=== PATIENT | female | born 1995 | race Caucasian/White ===

== ENCOUNTER → 2017-10-10 16:18 | Outpatient (CLI) | payer MEDICAID, SELFPAY ==
[2017-10-13 14:26] LABS: HPV Reflexed? NOT INDICATED
== END ==
PROVIDERS: Visit Provider Obstetrics & Gynecology
DX: Z12.4 Encounter for screening for malignant neoplasm of cervix (principal)
CPT/HCPCS: 88175; G0145

== ENCOUNTER 2018-03-30 23:35 | Emergency (ER) | payer MEDICAID, SELFPAY ==
[2018-03-30 23:36] VITALS: BP 112/77; PULSE 88; RESP 16; TEMP 37.2; O2SAT 98; BMI 25.8
--- NOTE | 2018-03-31 00:28 | ED.VISSUMM ---
- ER Visit Summary Date of Service: 03/31/18 Chief Complaint: sore throat History of Present Illness: The patient is a 22 F who presents with 2 days of sore throat. Patient developed sore throat 2 days ago, and now has associated headache, reductive cough, congestion and rhinorrhea, and nausea with 2 episodes of vomiting. Patient has not taken any [id number]-kuottow medications for her symptoms. She denies . Denies fever, neck pain, neck stiffness, abdominal pain, or other complaints other than above. Medical history of IBS. Physical Examination: Vital signs: afebrile, hemodynamically stable, no hypoxia on room air General: well nourished, well developed, in no distress Skin: warm, dry, no rash, no pallor HEENT: normocephalic and atraumatic; PERRL, EOMI, moist mucous membranes, mild posterior oropharyngeal erythema, no tonsillar swelling or exudates, no oropharyngeal lesions. Small cold sore to the corner of the right upper lip. Neck is supple, no lymphadenopathy, no tenderness. TMs are clear. Cardiovascular: regular rate and rhythm without murmurs, no peripheral edema, 2+ pulses all distal extremities Respiratory: No increased work of breathing, lungs are clear to auscultation bilaterally, no rales, rhonchi or wheezing Abdominal: Abdomen is soft, nontender with normoactive bowel sounds, no guarding or rebound, no masses MSK: Moves all extremities, no deformities, normal strength Neuro: Awake and alert, oriented ?4. No facial droop, sensation and motor function intact and symmetric Test Results: [] Emergency Department Course and Treatment: Patient's presentation is most consistent with a viral syndrome, and testing for strep is not indicated. Patient was given acetaminophen, Decadron and Zofran for symptomatically relief. She will continue to use [id number] medications for symptomatically for at home. She was given a prescription for Zofran for further nausea. She is to follow-up with her PCP if no improvement in 5 days. Patient discharged home. Treatment Plan: [] Disposition: [] Impression: Viral pharyngitis This note was generated with [employer] dictation software. It may contain incorrect words, spelling, and punctuation that were not noted in review of the chart prior to signing ED Disposition - Plan for ED Patient: Chief Complaint: Sore Throat Prescriptions: Ondansetron [Zofran Odt] 4 mg PO Q8H PRN PRN #10 tab PRN Reason: Nausea Referrals: Ana Maria Nicole MD [Primary Care Provider] -
--- NOTE | 2018-03-31 00:30 | ED.DEP ---
ED Disposition - Plan for ED Patient: Chief Complaint: Sore Throat Instructions: ED Pharyngitis Viral Prescriptions: Ondansetron [Zofran Odt] 4 mg PO Q8H PRN PRN #10 tab PRN Reason: Nausea Referrals: Ana Maria Nicole MD [Primary Care Provider] - 1 Week if not improving Additional Instructions: Use rqrh-icq-[id number] medications as needed for pain and discomfort. Follow-up with your doctor if you not having improvement in 5-7 days. If you have any worsening of your condition or any new concerning symptoms, please return immediately to the emergency department for another evaluation.
[2018-03-31] MEDS: Acetaminophen 500 MG Tablet 1000 MG PO (00:41)
[2018-03-31] MEDS: Ondansetron ODT 4 MG Tablet PO (00:42)
== END 2018-03-31 00:49 | disposition home or self-care (01) ==
PROVIDERS: Emergency Provider Emergency Medicine; Family Provider Internal Medicine; PCP Internal Medicine
DX: J02.9 Acute pharyngitis, unspecified (principal); J34.89 Other specified disorders of nose and nasal sinuses; R05 Cough; R11.2 Nausea with vomiting, unspecified; R51 Headache; K58.9 Irritable bowel syndrome, unspecified
CPT/HCPCS: 99283

== ENCOUNTER 2018-03-31 14:14 | Emergency (ER) | payer MEDICAID, SELFPAY ==
[2018-03-31 14:15] VITALS: BP 102/67; PULSE 109; RESP 16; TEMP 36.6; O2SAT 98; BMI 25.8
--- NOTE | 2018-03-31 15:57 | ED.VISSUMM ---
- ER Visit Summary Date of Service: 03/31/18 Chief Complaint: Chin laceration History of Present Illness: The patient is a 22 F presenting for evaluation secondary to a laceration to left liu. Patient reports that she was trying to mow outside and there was a tree in the way and she got angry that no one was cutting the tree down so she went inside and grabbed machete and was trying to trim the tree and ended up hitting herself in the left leg. Patient states that her tetanus status is up-to-date. Physical Examination: Lower extremity exam shows a 4-1/2 cm laceration over the patient's left anterior liu with full-thickness laceration, but no evidence of tendon or vascular involvement. Normal dorsiflexion plantar flexion and EHL of the foot, normal sensation normal pulses normal capillary refill distally. Test Results: None indicated Emergency Department Course and Treatment: Patient presented for evaluation secondary to a laceration. On initial exam of this there was a small amount of foreign material in there. Wound was anesthetized using a total of 10 cc 1% lidocaine. Patient's wound was then scrubbed with Shur-Clens and was copiously irrigated with saline. It was explored I was not able to identify any other foreign bodies, and there was no evidence of deep structure involvement. Wound was then dressed for closure. Patient was prepped and draped in sterile fashion. #3 5-0 Vicryl sutures were used to close the subcutaneous tissue, and #9 4-0 nylon sutures were used in a running fashion to close the skin. Patient tolerated this well. Wound was dressed she will follow-up with primary care for removal in 10-14 days. Disposition: Discharge Impression: 1. 4-1/2 cm left liu laceration 2. Complex laceration repair This note was generated with [employer] dictation software. It may contain incorrect words, spelling, and punctuation that were not noted in review of the chart prior to signing ED Disposition - Plan for ED Patient: Disposition: Home or Assisted Living Chief Complaint: Laceration Diagnosis: Skin laceration Instructions: ED Laceration All Referrals: Ana Maria Nicole MD [Primary Care Provider] - 10-14 Days suture removal
[2018-03-31] MEDS: BACITRACIN 15 GM Tube 1 APPLIC TOPICAL (16:08)
[2018-03-31 16:10] VITALS: PULSE 88; RESP 16
== END 2018-03-31 16:10 | disposition home or self-care (01) ==
PROVIDERS: Emergency Provider Emergency Medicine; Family Provider Internal Medicine; PCP Internal Medicine
DX: S81.822A Laceration with foreign body, left lower leg, initial encounter (principal); W26.8XXA Contact with other sharp object(s), not elsewhere classified, initial encounter; Y93.9 Activity, unspecified; Y92.9 Unspecified place or not applicable; K58.9 Irritable bowel syndrome, unspecified
CPT/HCPCS: 12032; 99283

== ENCOUNTER → 2018-04-30 15:12 | Outpatient (CLI) | payer MEDICAID, SELFPAY ==
--- NOTE | 2018-04-30 15:18 | RAD_ITS ---
STUDY: X-RAY - LUMBAR SPINE REASON FOR EXAM: Female, 22 years old. Chronic low back pain TECHNIQUE: 5 view(s) of the lumbar spine were obtained. COMPARISON: None FINDINGS: Normal lumbar lordosis. There is no substantial scoliosis. There is a normal alignment of the vertebrae. Normal vertebral bodies and endplates. Normal disc space heights. The soft tissue structures are unremarkable. RAD/L/S Spine Min 4 Views IMPRESSION: Normal x-ray examination of the lumbar spine. Electronically Signed: Michael Poe DO at 11:43 EDT Tel , Service support ,
== END ==
PROVIDERS: Family Provider Internal Medicine; PCP Internal Medicine; Visit Provider Chiropractor
DX: S33.5XXA Sprain of ligaments of lumbar spine, initial encounter (principal)
CPT/HCPCS: 72110

== ENCOUNTER → 2018-10-24 10:33 | Outpatient (CLI) | payer MEDICAID, SELFPAY ==
[2018-10-24 16:10] LABS: Pregnancy, Serum, hCG Quali. NEGATIVE Negative (0-9 Nonpreg)
[2018-10-26 13:08] LABS: HPV Reflexed? NOT INDICATED
== END ==
PROVIDERS: Visit Provider Obstetrics & Gynecology
DX: Z12.4 Encounter for screening for malignant neoplasm of cervix (principal); N92.5 Other specified irregular menstruation
CPT/HCPCS: 36415; 84703; 88175; G0145

== ENCOUNTER 2018-11-02 14:30 | Outpatient (RCR) | payer MEDICAID, SELFPAY ==
--- NOTE | 2018-10-10 12:12 | HP.OTEVAL_ITS ---
Patient's Visit Information NATASHA WILLAMS is a 23 year old F, referred to Occupational Therapy by Peter Ndiaye MD, with a diagnosis of pain and swelling both hands. Date of Evaluation: 10/09/18 Occupational Therapist: Di Galloway - Subjective Subjective: Pt seen for initial occupational thearpy evaluation for pain and swelling bilateral wrists. Pt states pain started about a year to year and half ago. Right hand dominent. Pt states cortisone in R hand 08/27/18 made things worse no relief. Scrubbing, writing, coloring/drawing cause most pain. Started when carrying 30 packs of beer with her job at the time. 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 Pt states increased pain with her job in bilateral hands. States her fiance has to pop and pull her R thumb out on days she has a lot of pain. Indep with BADLs/IADLs and caring for 16 month old baby. 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 Lives w torsten and her child. - Pain R wrist 5 - Objective Objective/Observation: pain with movement of bilateral wrists - ROM Wrist: R flexion 0/96, extension 0/65, L flexion 0/95 extension 0/68 ROM Comments: Pt able to make composite fist bilateral hands - Strength Blacking Machine Operator: R 80# L 53# Lateral Pinch: R 5#, L 8# Tripod Pinch: R 10#, L 5# - Edema Other: slight edema bilateral digits, pt states difficult to get her rings off - Sensation Sensation Comments: L hand numbness all digits and palm. Monofilament test: L hand/digits 2.83 normal range - Quick DASH-Disab of Arm,Shoulder& Hand Quick DASH Score: 56.8175 - Goals Goal:: Pt will progress w/ L tripod pinch strength from 5# to 10# to assist with functional living tasks by d/c from OT. Pt will progress w/ L retail client solutions consultant strength by 20# to assist with BADLs tasks w/o difficulty by d/c from OT services. Goal:: Pt will demo no pain greater than 1/10 bilateral hands/wrists with movement by d/c from OT services. Goal:: Pt will be educated on joint protection/energy conservation tech w/ good understanding and demo 100%x. Goal:: Pt will be able to open variety of containers independently using bilateral hands in 3/4 trials by d/c from OT services. Goal:: Pt will be educated on BUE HEP with good understanding and demo 100%x. - Rehabilitation General Assessment: Pt demo increased bilateral hand and wrist pain with repetitive tasks. Pt demo decreased bilateral hand strength. Pt would benefit from direct occupational therapy services to increase bilateral hand strength, educate on BUE hand HEP, decrease pain bilateral hands/wrists to increase indep with functional living tasks and repetitive tasks. Rehabilitation Potential: Good - Anticipated Interventions Anticipated Interventions: Strengthening, Massage, Modalities, Orthoses, Joint Protection/Energy Conservation, Fine Motor Coord/Manuel, ADL Training, Education re assistive Equipment, Education re Diagnosis, Education re Self Massage Techniques, Home Program - Visit Plan Frequency: 1-2x /Week Duration: 4 Weeks General Plan: increase retail client solutions consultant and pinch strength, educate on HEP, increase independence with functional living tasks, educate on joint protection, decrease bilateral hand pain. TEXT: Thank you for the opportunity to evaluate your patient. For Medicare and Medicare HMO plans, please review the plan of care and approve it. It will need to be FAXED BACK to us at [phone] for Medicare purposes. Please let me know if there are questions or concerns regarding this plan of care. Physician Signature: Date:
== END 2018-11-02 17:00 | disposition home or self-care (01) ==
LOC: OT 14:30
PROVIDERS: Family Provider Internal Medicine; PCP Internal Medicine; Referring Provider Orthopaedic Surgery; Visit Provider Orthopaedic Surgery
DX: M79.641 Pain in right hand (principal); M79.642 Pain in left hand; M79.89 Other specified soft tissue disorders
CPT/HCPCS: 97035; 97140; 97165; 97166; 97530

== ENCOUNTER 2019-04-04 19:38 | Emergency (ER) | payer MEDICAID, SELFPAY ==
[2019-04-04 19:39] VITALS: BP 125/70; PULSE 106; RESP 18; TEMP 37.2; O2SAT 96; BMI 28.0
--- NOTE | 2019-04-04 19:56 | ED.VIS.GEN ---
History of Present Illness Chief Complaint: Foreign Body Detail of Chief Complaint: Swallowed tongue piercing Informant: Patient Onset: Today Context: Sudden Onset Timing: Continuous Quality: Foreign body sensation right anterior neck Location: Anterior neck Current Severity: Mild Maximum Severity: Moderate Worsened by: Swallowing Relieved by: Nothing Associated Symptoms: No other associated symptoms Narrative: Patient is a 23-year-old who states she choked a bottle of Mountain Dew. She states her piercing came apart and she swallowed it. She believes it is stuck anterior right throat. She has no trouble swallowing i.e. drooling and no change in voice. She states she feels as if it stuck. Prior similar symptoms: No Recent Illness/Hospitalization: No - Past Medical History (1) No significant past medical history Status: Acute Past Medical History - Allergies and Home Meds Allergies/Adverse Reactions: Allergies nickel Allergy (Verified 04/04/19 19:42) Rash aspirin Adverse Reaction (Verified 04/04/19 19:42) Upset Stomach Primary Care Physician: Ana Maria Nicole MD [Primary Care Provider] - Prior records reviewed: No Past Medical History: None Surgical History: no surgical history Lives: Alone Smoking Status: Current every day smoker Alcohol: None Drugs: None Review of Systems General: Denies: Chills, Fever, Sweats Eyes: Denies: Visual changes - bilaterally, Blurred Vision - bilaterally ENT: Denies: Bilateral ear pain, Rhinorrhea, Sore throat Cardiovascular: Denies: Chest pain, Palpitations Respiratory: Denies: Dyspnea, Cough, Dyspnea on exertion Musculoskeletal: Reports: Neck pain. Denies: Myalgias, Arthralgias Neurological: Denies: Weakness, Parasthesia, Numbness Hematologic: Denies: Easy bruising, Easy bleeding Allergy: Denies: Uticaria, Swelling of the mouth, Swelling of the tongue Physical Exam Vital Signs/Narrative: Vital Signs Temp Pulse Resp BP Pulse Ox 04/04/19 19:39 98.9 F 106 H 18 125/70 H 96 Inital Vital Signs reviewed: Yes General: Well nourished, Well developed, No Acute Distress Head: Normocephalic, Atraumatic Eyes: Perrl, EOMI ENT: Moist mucous membranes, No rhinorrhea Neck: Supple, Nontender, No lymphadenopathy, No JVD, - - Trachea is midline. There is no stridor. There is no dysphonia. There is no drooling. Cardiovascular: Regular rate, Regular rhythm, No murmurs, Normal S1, Normal S2 Respiratory: No distress, CTA bilaterally, Chest nontender Skin: Normal color, No rash Neurological: Alert, Oriented x3, Cranial nerves II-XII grossly intact, Normal Strength, Normal Sensation Psychological: Normal affect, Normal Mood Diagnostic/Tx/Re-eval Chest X-Ray - ED: 2 View, Read by ED Physician, - - 2 view x-ray of the neck reveals no foreign body. There is evidence of dental work. The cervical spine alignment is appropriate. There is no soft tissue swelling of the prevertebral space. The epiglottis and vallecula appear normal. - Medical Decision Making Tissue x-ray of the neck was obtained to see if there is a retained foreign body versus an abrasion which gives the sensation of a foreign body. ED Disposition - Plan for ED Patient: Disposition: Home or Assisted Living Diagnosis: Foreign body sensation in throat Instructions: SWALLOWED FOREIGN BODY (Adult) Referrals: Ana Maria Nicole MD [Primary Care Provider] - As Needed
--- NOTE | 2019-04-04 20:20 | RAD_ITS ---
STUDY: X-RAY - SOFT TISSUE NECK REASON FOR EXAM: Female, 23 years old. Swallowed part of a tongue ring TECHNIQUE: 2 view(s) of the neck were obtained. COMPARISON: None. FINDINGS: Normal visualized nasopharynx, oropharynx, hypopharynx. Normal epiglottis. Normal visualized subglottic tracheal air column. Normal prevertebral soft tissue structures. Normal visualized osseous structures. The soft tissue structures are unremarkable. RAD/Neck for Soft Tissue IMPRESSION: Normal x-ray soft tissue neck. Electronically Signed: Michael Poe DO at 20:42 EDT Tel , Service support ,
[2019-04-04 21:52] VITALS: RESP 17
[2019-04-04 21:55] VITALS: BP 132/76; PULSE 75; RESP 15
== END 2019-04-04 21:56 | disposition home or self-care (01) ==
PROVIDERS: Emergency Provider Emergency Medicine; Family Provider Internal Medicine; PCP Internal Medicine
DX: R09.89 Other specified symptoms and signs involving the circulatory and respiratory systems (principal); F17.200 Nicotine dependence, unspecified, uncomplicated
CPT/HCPCS: 70360; 99282

== ENCOUNTER 2019-08-10 19:35 | Emergency (ER) | payer MEDICAID, SELFPAY ==
[2019-08-10 19:35] VITALS: BP 122/67; PULSE 100; RESP 16; TEMP 37.1; O2SAT 97; BMI 25.9
--- NOTE | 2019-08-10 19:56 | ED.VIS.GEN ---
History of Present Illness Chief Complaint: Abd Pain Informant: Patient Onset: Yesterday Timing: Waxes and wanes Current Severity: Mild Maximum Severity: Moderate Narrative: Patient presents with pain to the inferior aspect of the left lower quadrant. She states she had some mild pulling sensation yesterday. Today she has had more severe spasm. She is currently 7 weeks and has not yet had imaging studies. She states her last period was late June but was not a normal period for her, it was much raise driller and shorter than normal. She is scheduled to see Dr. Hull this coming week. - Past Medical History (1) Anxiety and depression Status: Chronic (2) Back pain Status: Chronic Past Medical History - Allergies and Home Meds Allergies/Adverse Reactions: Allergies nickel Allergy (Verified 04/04/19 19:42) Rash aspirin Adverse Reaction (Verified 04/04/19 19:42) Upset Stomach Primary Care Physician: Ana Maria Nicole MD [Primary Care Provider] - Doctors: Dr. Hull Surgical History: no surgical history Lives: With Family Smoking Status: Current every day smoker Review of Systems General: Denies: Chills, Fever Eyes: Denies: Visual changes - bilaterally ENT: Denies: Bilateral ear pain Cardiovascular: Denies: Chest pain Respiratory: Denies: Dyspnea, Cough Gastrointestinal: Reports: Abdominal pain, Nausea, Vomiting Genitourinary: Denies: Dysuria, Hematuria Musculoskeletal: Denies: Extremity Pain Skin: Denies: Rash Neurological: Denies: Headache Allergy: Denies: Uticaria Physical Exam Vital Signs/Narrative: Vital Signs Temp Pulse Resp BP Pulse Ox 08/10/19 19:35 98.7 F 100 16 122/67 H 97 Inital Vital Signs reviewed: Yes General: Well nourished, Well developed Head: Normocephalic ENT: Moist mucous membranes Neck: Supple Cardiovascular: Regular rate, Regular rhythm Respiratory: No distress, CTA bilaterally Abdomen: Soft, Tender - Mild tenderness palpation in the inferior aspect of the left lower quadrant.. Negative for: Guarding, Rebound tenderness Back: Nontender Extremities: Nontender Skin: Normal color, No rash Neurological: Alert, Oriented x3 Psychological: Normal affect Diagnostic/Tx/Re-eval 08/10/19 20:51 Transvaginal w/Preg US [US] Stat Laboratory Results 01/04/20 01/04/20 01/04/20 19:47 19:53 19:53 WBC 8.3 RBC 4.59 Hgb 13.6 Hct 39.6 MCV 86.3 MCH 29.6 MCHC 34.3 RDW Std Deviation 40.1 RDW Coeff of Radha 12.9 Plt Count 211 MPV 11.8 Immature Gran % (Auto) 0.400 Neut % (Auto) 71.6 H Lymph % (Auto) 23.1 [place] % (Auto) 4.7 Eos % (Auto) 0.1 Baso % (Auto) 0.1 Absolute Neuts (auto) 6.0 Absolute Lymphs (auto) 1.92 Nucleated RBC % 0 HCG, Quant [id number] H Urine Color Yellow Urine Clarity Clear Urine pH 5.0 Ur Specific [place] 1.025 Urine Protein 15 H Urine Glucose (UA) Normal Urine Ketones 5 H Urine Occult Blood 10 H Urine Nitrite Negative Urine Bilirubin Negative Urine Urobilinogen Normal Ur Leukocyte Esterase 25 H Urine RBC 0 SEEN Urine WBC 0-5 SEEN Ur Squamous Epith Cells 10-25 SEEN Urine Bacteria 2+ Urine Mucus 0 SEEN - Medical Decision Making Patient was given morphine, Zofran, and IV fluids. Repeat evaluation she does feel improved. Ultrasound appears to show intrauterine at 7 weeks with good heart tone. Official report will be checked by oncoming physician. Patient has follow-up appointment scheduled this week with ONCOLOGY COORDINATOR. ED Disposition - Plan for ED Patient: Disposition: Home or Assisted Living Diagnosis: Pelvic pain, First trimester Instructions: ABDOMINAL PAIN, Early Referrals: Nilo Hull MD [STAFF PHYSICIAN] - Keep Colin appointment
[2019-08-10 20:02] LABS: Mucous, Urine 0 SEEN /hpf (<or=2+); Red Blood Cells-Urine 0 SEEN /hpf (0-5)
[2019-08-10] MEDS: 0.9% Normal Saline 1,000 ML 150 ML IV (20:02)
[2019-08-10] MEDS: Ondansetron 4 MG/2 ML Vial IV (20:03)
[2019-08-10] MEDS: Morphine 4 MG/ML Syringe IV (20:03)
[2019-08-10 20:08] LABS: Color, Urine Yellow (Yellow); Glucose, Dipstick Normal (Normal); Ketone-Dipstick 5 mg/dl (Negative); Leukocyte Esterase-Dipstick 25 /ul (Negative); Nitrite-Dipstick Negative (Negative); Occult Blood-Urine 10 /ul (Negative); Protein-Dipstick 15 mg/dl (Negative); Specific Gravity, Urine 1.025 (1.002-1.030); Urine Bilirubin Dipstick Negative (Negative); Urine Clarity Clear (Clear); Urine Urobilinogen Normal (Normal)
[2019-08-10 20:16] LABS: Squamous Epithelial Cells - UA 10-25 SEEN /hpf (5-10); White Blood Cells 0-5 SEEN /hpf (0-5)
[2019-08-10 20:17] LABS: Absolute Lymphocyte Count 1.92 X10^3/uL (0.83-4.51); Basophil# 0.01 X10^3/uL; Basophil% 0.1 % (0-1); Eosinophil# 0.01 X10^3/uL; Eosinophils% 0.1 % (0-5); Hematocrit 39.6 % (37-47); Hemoglobin 13.6 g/dL (12.0-15.0); Lymphocyte # 1.92 X10^3/ul (4.0); Lymphocyte % 23.1 % (19-41); Mean Corp Hgb Conc 34.3 g/dL (32-36); Mean Corpuscular Hgb 29.6 pg (27.0-32.0); Mean Corpuscular Volume 86.3 fL (81-99); Mean Platelet Vol. 11.8 fl (6.2-12.0); Monocyte# 0.39 X10^3/uL; Monocyte% 4.7 % (0-10); NRBC Flagged by Analyzer 0 % (0-5); Neutrophil # 5.95 X10^3/uL (2.7-7.7); Neutrophil % 71.6 % (47-70); Platelet Count 211 K/mm3 (150-450); RBC Distribution Width CV 12.9 % (11.6-14.6); RBC Distribution Width SD 40.1 fl (35.1-43.9); Red Blood Count 4.59 M/mm3 (4.2-5.4); White Blood Count 8.3 K/mm3 (4.4-11.0)
[2019-08-10 20:17] LABS: Bacteria 2+ /hpf (None Seen)
--- NOTE | 2019-08-10 20:51 | US_ITS ---
STUDY: FIRST TRIMESTER OBSTETRICAL ULTRASOUND REASON FOR EXAM: Female, 24 years old PAIN - LLQ QUANT [id number] LMP: 06/26/2019 TECHNIQUE: Transvaginal TECHNICAL QUALITY: Adequate. PRIOR ULTRASOUND: None. FINDINGS: There is visualization of a single gestational sac in a normal intrauterine position. The mean sac diameter (MSD) measures 2.73 cm, indicating an estimated gestational age (EGA) of 8 weeks, 0 days. The gestational sac shape is within normal limits. There is a visualized yolk sac. The yolk sac measures 0.54 cm. The placenta is non-visualized. There is visualization of a live embryo. The crown-rump length (CRL) measures 0.99 cm, indicating an estimated gestational age (EGA) of 7 weeks, 1 days. There is demonstrated cardiac activity with a heart rate of 124 bpm. The estimated gestation age (EGA) by LMP is 6 weeks, 3 days. The estimated date of delivery (LANIE) by LMP is 04/01/2020. The estimated gestation age (EGA) by US is 7 weeks, 4 days. The estimated date of delivery (LANIE) by US is 03/24/2020. The uterus measures 8.7 x 7.0 x 5.4 cm. There is no demonstrated uterine fibroid. The cervix is closed. The right ovary measures 2.6 x 2.2 x 2.4 cm. There is no right ovarian cyst. There is no visualized right adnexal mass or complex lesion. The left ovary measures 3.0 x 1.7 x 3.9 cm. There is no left ovarian cyst. There is no visualized left adnexal mass or complex lesion. There is no fluid in the cul de sac. US/Transvaginal w/Preg US IMPRESSION: Single live intrauterine at 7 weeks, 4 days by current ultrasound LANIE of 03/24/2020. Heart rate of 124 bpm. No suspicious sonographic findings Electronically Signed: Colby Robertson MD at 22:50 EST , Service support ,
[2019-08-10 21:54] VITALS: RESP 16
[2019-08-10 23:11] VITALS: BP 96/55; PULSE 60; RESP 18; O2SAT 100
== END 2019-08-10 23:11 | disposition home or self-care (01) ==
PROVIDERS: Emergency Provider Emergency Medicine; Family Provider Internal Medicine; PCP Internal Medicine
DX: O26.891 Other specified pregnancy related conditions, first trimester (principal); R10.2 Pelvic and perineal pain; R11.2 Nausea with vomiting, unspecified; O99.331 Smoking (tobacco) complicating pregnancy, first trimester; F17.200 Nicotine dependence, unspecified, uncomplicated; Z3A.01 Less than 8 weeks gestation of pregnancy
CPT/HCPCS: 76817; 81001; 84702; 85025; 96361; 96374; 96375; 99282; J7030; A4216; J2405

== ENCOUNTER → 2019-08-14 16:48 | Outpatient (CLI) | payer MEDICAID, SELFPAY ==
[2019-08-10 19:35] VITALS: BMI 25.9
[2019-08-14 22:30] LABS: Chlamydia Trachomatis by PCR Negative (Negative); Neisserai gonorrhoeae by PCR Negative (Negative); Probe Check PASS; Sample Adequacy Control PASS; Specimen Processing Control PASS
== END ==
PROVIDERS: Visit Provider Obstetrics & Gynecology
DX: Z11.3 Encounter for screening for infections with a predominantly sexual mode of transmission (principal)
CPT/HCPCS: 87491; 87591

== ENCOUNTER → 2019-09-11 15:25 | Outpatient (CLI) | payer MEDICAID, SELFPAY ==
[2019-09-11 16:23] LABS: Absolute Lymphocyte Count 1.92 X10^3/uL (0.83-4.51); Absolute Neutrophil Count 4.3 X10^3/uL (2.0-7.7); Basophil# 0.01 X10^3/uL; Basophil% 0.2 % (0-1); Eosinophil# 0.04 X10^3/uL; Eosinophils% 0.6 % (0-5); Hematocrit 39.8 % (37-47); Hemoglobin 13.5 g/dL (12.0-15.0); Lymphocyte # 1.92 X10^3/ul (4.0); Lymphocyte % 29.1 % (19-41); Mean Corp Hgb Conc 33.9 g/dL (32-36); Mean Corpuscular Hgb 29.5 pg (27.0-32.0); Mean Corpuscular Volume 86.9 fL (81-99); Mean Platelet Vol. 12.2 fl (6.2-12.0); Monocyte# 0.35 X10^3/uL; Monocyte% 5.3 % (0-10); NRBC Flagged by Analyzer 0 % (0-5); Neutrophil # 4.26 X10^3/uL (2.7-7.7); Neutrophil % 64.5 % (47-70); Platelet Count 234 K/mm3 (150-450); RBC Distribution Width CV 13.2 % (11.6-14.6); RBC Distribution Width SD 41.6 fl (35.1-43.9); Red Blood Count 4.58 M/mm3 (4.2-5.4); White Blood Count 6.6 K/mm3 (4.4-11.0)
[2019-09-11 16:59] LABS: Amphetamine Urine VISTA NEGATIVE (<1000 ng/mL); Barbiturate Urine VISTA NEGATIVE (< 200 ng/mL); Benzodiazepine Urine VISTA NEGATIVE (< 200 ng/mL); Cocaine Urine VISTA NEGATIVE (< 300 ng/mL); Ecstacy Urine VISTA NEGATIVE (< 500 ng/mL); Methadone Urine VISTA NEGATIVE (< 300 ng/mL); PCP Urine VISTA NEGATIVE (< 25 ng/mL); THC Urine VISTA NEGATIVE (< 50 ng/mL); Vista UDS pH Range 6
[2019-09-11 17:02] LABS: COTININE Drug Screen Positive (<200 ng/mL)
[2019-09-11 17:15] LABS: Color, Urine Yellow (Yellow); Glucose, Dipstick Normal (Normal); Ketone-Dipstick Negative (Negative); Leukocyte Esterase-Dipstick Negative /ul (Negative); Nitrite-Dipstick Negative (Negative); Occult Blood-Urine Negative /ul (Negative); Protein-Dipstick 15 mg/dl (Negative); Specific Gravity, Urine 1.015 (1.002-1.030); Urine Bilirubin Dipstick Negative (Negative); Urine Clarity Clear (Clear); Urine Urobilinogen 1 mg/dl (Normal)
[2019-09-12 03:50] LABS: Prenatal RPR NONREACTIVE (NONREACTIVE)
[2019-09-12 09:41] LABS: HIV - WCH Non-Reactive (Nonreactive); Hepatitis B Surface Antigen Non-Reactive (Nonreactive); Hepatitis C Antibody Non-Reactive (Nonreactive); Rubella IgG 52.8 IU/mL
== END ==
PROVIDERS: Visit Provider Obstetrics & Gynecology
DX: Z34.81 Encounter for supervision of other normal pregnancy, first trimester (principal)
CPT/HCPCS: 36415; 80307; 81002; 84443; 85025; 86703; 86762; 86803; 87340

== ENCOUNTER → 2019-10-09 16:39 | Outpatient (CLI) | payer MEDICAID, SELFPAY ==
[2019-10-12 03:06] LABS: AFP Value-EIA 30.4 ng/mL (.); Comment Report (.); DIA MoM Value 0.72 (.); DIA Value-EIA 109.76 pg/mL (.); DSR (By Age) 948 (.); DSR (Second Trimester) 10000 (.); Gestat. Age Based On As provided (.); Gestational Age 16.1 WEEKS (.); Insulin Dep Diabetes No (.); Maternal Age At EDD 26.6 yr (.); hCG MoM 0.34 (.); hCG Value 12490 mIU/mL (.)
== END ==
PROVIDERS: Visit Provider Obstetrics & Gynecology
DX: Z34.82 Encounter for supervision of other normal pregnancy, second trimester (principal)
CPT/HCPCS: 36415; 82105; 82677; 84702

== ENCOUNTER → 2020-01-02 15:36 | Outpatient (CLI) | payer MEDICAID, SELFPAY ==
[2020-01-02 16:36] LABS: Hematocrit 35.2 % (37-47); Hemoglobin 11.8 g/dL (12.0-15.0); Mean Corp Hgb Conc 33.5 g/dL (32-36); Mean Corpuscular Hgb 31.1 pg (27.0-32.0); Mean Corpuscular Volume 92.6 fL (81-99); Mean Platelet Vol. 12.3 fl (6.2-12.0); Platelet Count 226 K/mm3 (150-450); RBC Distribution Width CV 13.8 % (11.6-14.6); RBC Distribution Width SD 46.8 fl (35.1-43.9); White Blood Count 9.6 K/mm3 (4.4-11.0)
[2020-01-02 16:45] LABS: Glucose Challenge Gest 1H 50g 143 mg/dL (70-140)
== END ==
PROVIDERS: Visit Provider Obstetrics & Gynecology
DX: Z34.83 Encounter for supervision of other normal pregnancy, third trimester (principal)
CPT/HCPCS: 36415; 82950; 85027

== ENCOUNTER → 2020-01-15 06:53 | Outpatient (CLI) | payer MEDICAID, SELFPAY ==
[2020-01-15 07:28] LABS: Glucose GTT-Gestation. Fasting 86 mg/dL (<105)
[2020-01-15 08:41] LABS: Glucose GTT-Gestational 1 Hr 163 mg/dL (<190)
[2020-01-15 09:31] LABS: Glucose GTT-Gestational 2 Hr 98 mg/dL (<165)
[2020-01-15 10:43] LABS: Glucose GTT-Gestational 3 Hr 127 L (<145)
== END ==
PROVIDERS: PCP Nurse Practitioner Family; Referring Provider Obstetrics & Gynecology; Visit Provider Obstetrics & Gynecology
DX: O24.912 Unspecified diabetes mellitus in pregnancy, second trimester (principal); Z3A.00 Weeks of gestation of pregnancy not specified
CPT/HCPCS: 36415; 82951; 82952

== ENCOUNTER 2020-02-05 01:15 | Outpatient (CLI) | payer MEDICAID, SELFPAY ==
[2020-02-05 01:31] VITALS: PULSE 102; O2SAT 96
[2020-02-05 01:32] VITALS: BP 120/71; PULSE 102; TEMP 36.6
[2020-02-05 01:40] VITALS: BMI 28.5
--- NOTE | 2020-02-06 20:23 | OB.TRI.HP_ITS ---
- Problem List (1) 33 weeks gestation of Status: Acute (2) Spotting complicating in third trimester Status: Acute History of Present Illness Date of Service: 02/05/20 Was patient seen by the physician?: No Reason For Visit: R/O LABOR Date of Service: 02/05/20 Final LANIE: 03/24/20 Final LANIE Source: US <20 weeks Gestational age: 33 Weeks and 2 Days History of Present Illness: Patient came into triage with reports of having a little blood on the toilet paper when she wiped today. Allergies nickel Allergy (Verified 02/05/20 01:41) Rash aspirin Adverse Reaction (Verified 02/05/20 01:41) Upset Stomach Review of Systems Constitutional: Denies: Chills, Fever, Weight Change HEENT: Denies: Head Aches, Sinus Congestion, Sinus Drainage Cardiovascular: Denies: Chest Pain, Palpitations Respiratory: Denies: Cough, Shortness of breath at rest, Sputum production Gastrointestinal: Denies: Abdominal Pain, Nausea, Vomiting Genitourinary: Denies: Dysuria Musculoskeletal: Denies: Joint Pain, Joint Tenderness Skin: Denies: Rash, Wounds Neurological: Denies: Numbness, Tingling, Focal weakness Psychiatric: Denies: Anxiety, Depression, Homicidal Ideations, Suicidal Ideations Hematologic/ Lymphatic: Denies: Easy Bruising, Easy Bleeding Physical Exam Vitals: Vital Signs Temp Pulse BP Pulse Ox 97.8 F 102 H 120/71 96 02/05/20 01:32 02/05/20 01:32 02/05/20 01:32 02/05/20 01:31 General: Alert, Oriented x3, No apparent distress HEENT: Atraumatic, Normocephalic. Negative for: Thyromegaly, Lymphadenopathy Cardiovascular: Regular rate, Regular Rhythm Lungs: Clear to auscultation Abdomen: Bowel Sounds Present, Gravid Neurological: Deep Tendon Reflexes 2+/4 and Symmetrical, Neuro grossly intact COMMISSIONER OF CONCILIATION: Normal external genitalia. Negative for: Vulvar lesions Estimated gestational size: Appropriate for gestational size NST - FHR Rate Baby A Baseline: 135 Variability:: Moderate Accelerations:: 15 x 15 Decelerations:: None NST Reactive:: Yes FHR Category:: Category I Uterine Activity:: quiet Impression/Plan A/P: A/P: here at 33 weeks gestation with complaints of spotting x once NST Category I No UC noted or reported No vaginal bleeding or rectal bleeding visualized Patient believes now that the blood was from her rectum after using the bathroom To discharge home to rest, hydrate and monitor symptoms To return to triage or call union contract representative triage line if bleeding reoccurs
== END 2020-02-05 02:00 | disposition home or self-care (01) ==
LOC: WPOUT 01:20 → WP 01:20
PROVIDERS: PCP Nurse Practitioner Family; Visit Provider Obstetrics & Gynecology
DX: O26.853 Spotting complicating pregnancy, third trimester (principal); Z3A.33 33 weeks gestation of pregnancy
CPT/HCPCS: 59025; 59050; 99218; G0378

== ENCOUNTER → 2020-02-26 17:59 | Outpatient (CLI) | payer MEDICAID, SELFPAY ==
[2020-02-05 01:40] VITALS: BMI 28.5
== END ==
PROVIDERS: Referring Provider Obstetrics & Gynecology; Visit Provider Obstetrics & Gynecology
DX: Z36.85 Encounter for antenatal screening for Streptococcus B (principal)
CPT/HCPCS: 87081

== ENCOUNTER 2020-03-15 16:50 | Outpatient (CLI) | payer MEDICAID, SELFPAY ==
[2020-03-15 17:08] VITALS: BMI 28.0
--- NOTE | 2020-03-15 23:55 | OB.TRI.NOTE ---
- Problem List (1) 38 weeks gestation of Status: Acute History of Present Illness Date of Service: 03/15/20 Was patient seen by the physician?: No Reason For Visit: DECREASED MOVEMENT Final LANIE: 03/24/20 Final LANIE Source: US <20 weeks Gestational age: 38 Weeks and 5 Days History of Present Illness: at 38 5/7 weeks gestation with c/o decreased movement Allergies nickel Allergy (Verified 03/17/20 23:53) Rash aspirin Adverse Reaction (Verified 03/17/20 23:53) Upset Stomach lactose Adverse Reaction (Verified 03/17/20 23:53) Upset Stomach NST - FHR Rate Baby A Baseline: 130 Variability:: Moderate Accelerations:: 15 x 15 Decelerations:: None NST Reactive:: Yes FHR Category:: Category I Uterine Activity:: 0/10 Impression/Plan Reactive NST, Cat I FHR -d/c home
== END 2020-03-15 18:15 | disposition home or self-care (01) ==
LOC: WPOUT 16:57 → OBT 16:57
PROVIDERS: Visit Provider Obstetrics & Gynecology
DX: O36.8130 Decreased fetal movements, third trimester, not applicable or unspecified (principal); Z3A.38 38 weeks gestation of pregnancy
CPT/HCPCS: 59025; 59050; 99218; G0378

== ENCOUNTER 2020-03-17 23:33 | Outpatient (CLI) | payer MEDICAID, SELFPAY ==
[2020-03-17 23:43] VITALS: BP 111/65; PULSE 96; TEMP 36.7; O2SAT 97
[2020-03-17 23:51] VITALS: BMI 28.3
--- NOTE | 2020-03-17 23:55 | OB.TRI.NOTE ---
- Problem List (1) 39 weeks gestation of Status: Acute (2) Decreased movement Status: Acute Qualifiers: Fetus number: single or unspecified fetus Trimester: third trimester Qualified Code(s): O36.8130 - Decreased movements, third trimester, not applicable or unspecified History of Present Illness Date of Service: 03/17/20 Was patient seen by the physician?: No Reason For Visit: DECREASED MOVEMENT Final LANIE: 03/24/20 Final LANIE Source: US <20 weeks Gestational age: 39 Weeks and 0 Days History of Present Illness: 24yo @ 39 wga with c/o decreased movement Allergies nickel Allergy (Verified 03/17/20 23:53) Rash aspirin Adverse Reaction (Verified 03/17/20 23:53) Upset Stomach lactose Adverse Reaction (Verified 03/17/20 23:53) Upset Stomach Physical Exam Vitals: Vital Signs Temp Pulse BP Pulse Ox 98.1 F 80 110/58 L 98 03/18/20 00:29 03/18/20 00:29 03/18/20 00:29 03/18/20 00:29 NST - FHR Rate Baby A Baseline: 130 Variability:: Moderate Accelerations:: 15 x 15 Decelerations:: None NST Reactive:: Yes FHR Category:: Category I Uterine Activity:: 0/10 Impression/Plan Cat I FHR, Reactive NST -d/c home, movement precautions, f/u outpatient as scheduled
[2020-03-18 00:29] VITALS: BP 110/58; PULSE 80; TEMP 36.7; O2SAT 98
== END 2020-03-18 00:40 | disposition home or self-care (01) ==
LOC: WPOUT 23:42 → OBT 23:43
PROVIDERS: Visit Provider Obstetrics & Gynecology
DX: O36.8130 Decreased fetal movements, third trimester, not applicable or unspecified (principal); Z3A.39 39 weeks gestation of pregnancy
CPT/HCPCS: 59025; 59050; 99218; G0378

== ENCOUNTER 2020-03-25 11:25 | Inpatient (IN) | payer MEDICAID, SELFPAY ==
[2020-03-25] VITALS (34 sets, daily range): BP systolic 98–116; BP diastolic 55–68; PULSE 58–95; TEMP 36.1–36.9; O2SAT 83–99; BMI 28.6
[2020-03-25] MEDS: Lactated Ringers 1,000 ML 50 ML IV (15:55)
[2020-03-25 16:13] LABS: Absolute Neutrophil Count 7.6 X10^3/uL (2.0-7.7); Basophil# 0.03 X10^3/uL; Basophil% 0.3 % (0-1); Eosinophil# 0.05 X10^3/uL; Eosinophils% 0.5 % (0-5); Hematocrit 34.1 % (37-47); Hemoglobin 11.8 g/dL (12.0-15.0); Lymphocyte % 22.9 % (19-41); Mean Corp Hgb Conc 34.6 g/dL (32-36); Mean Corpuscular Volume 89.5 fL (81-99); Mean Platelet Vol. 12.5 fl (6.2-12.0); Monocyte# 0.59 X10^3/uL; Monocyte% 5.4 % (0-10); NRBC Flagged by Analyzer 0 % (0-5); Neutrophil # 7.62 X10^3/uL (2.7-7.7); Neutrophil % 69.9 % (47-70); Platelet Count 222 K/mm3 (150-450); RBC Distribution Width CV 12.8 % (11.6-14.6); RBC Distribution Width SD 41.4 fl (35.1-43.9); Red Blood Count 3.81 M/mm3 (4.2-5.4); White Blood Count 10.9 K/mm3 (4.4-11.0)
[2020-03-25] MEDS: Oxytocin 30 units/NS 500 ml 30 UNITS/500 ML IV.SOLN IV (16:59)
[2020-03-25] MEDS: Lactated Ringers 500 ML 999 ML IV (17:29)
[2020-03-25] MEDS: fentaNYL-bupivacaine (epidural) 100 ML BAG EPIDURAL (18:20)
[2020-03-25] MEDS: Lactated Ringers 1,000 ML 200 ML IV (21:23)
--- NOTE | 2020-03-25 22:09 | NURSING ---
inserted by previous RNPreet at charted time
[2020-03-25] MEDS: Oxytocin 30 units/NS 500 ml 30 UNITS/500 ML IV.SOLN 999 UNITS IV (23:30)
[2020-03-26] VITALS (17 sets, daily range): BP systolic 110–122; BP diastolic 55–76; PULSE 57–81; RESP 16–18; TEMP 36.4–36.8; O2SAT 98
--- NOTE | 2020-03-26 00:24 | PCM.HPOB.BLA ---
History and Physical Date of Admission: 03/25/20 CC: Induction of labor term HPI: 24yo at 40wk/2d with LANIE: 03/24/20 by 7wk U/s arrives for induction of labor at term. Denies VB, LOF, CUELLAR, Visual changes, CP, SOB, N/V, RUQ pain. States good movement OB Hx: 2015: 39wk 2017: 6wk SAB 2020: Current PMH: None PSH: None Meds: PNV Allergies: ASA: SOB Issa: rash Social: Smokes 1ppd, denies drug or EtOH use ROS: Besides the above pertinent positives a full review of systems was performed and found to be negative panel: A pos Ab neg, GBS neg 02/25, Rubella immune, RPR nonreactive, HIV Ab neg, HepBs Ag neg Physical Exam General: NAD, normal appearing HEENT: NCAT, PERRL, neck supple Cardiac: RRR, neg murmurs rubs or gallops Resp: CTA B/l, neg wheezes rales or crackles Ab: Soft, nontender, gravid. +BS Ext: neg peripheral edema Neuro: CN II-XII intact Psych: Normal affect, normal demeanor nonpressured speech Labs CBC, T&S A/P 24yo at 40wk/2d arrives for IOL at term -Pitocin induction -AROM per Dr. Hull -Routine orders -Anesthesia to see
--- NOTE | 2020-03-26 00:34 | OP.PCM_ITS ---
Vaginal Delivery Maternal Presentation: Elective Induction Method of Induction: Pitocin, Amniotomy Amniotic Membrane Rupture Type: Artificial Final LANIE: 03/24/20 Final LANIE Source: US <20 weeks Gestational age: 40 Weeks and 2 Days Date of Procedure: 03/25/20 Pre-Operative Diagnosis: term Post-Operative Diagnosis: term Surgery/ Procedure Performed: Spontaneous Vaginal Delivery Type of Anesthesia: Epidural Description of Procedure: Normal spontaneous vaginal delivery of a viable male infant, vertex. Nuchal cord x1. Head and shoulders were delivered with ease. Cord was cut and clamped he was handed off to mom. Placenta was delivered via uterine massage and cord t raction. Second-degree laceration and periurethral laceration were identified and repaired in typical fashion. EBL 250 cc Apgars 8/9 Medications given after delivery: IV Pitocin
[2020-03-26] MEDS: Oxytocin 30 units/NS 500 ml 30 UNITS/500 ML IV.SOLN 334 UNITS IV (00:38)
--- NOTE | 2020-03-26 00:39 | DCINST_ITS ---
<Kar Lim - Last Filed: 03/26/20 00:39> Discharge Diet: No Restrictions Discharge Activity: Return to Normal Activity May resume sexual activity in: 2 weeks Weight Bearing Status: Weight bearing as tolerated Call your doctor if your incision/area has: Sudden Increased Bleeding, Increased Redness, Foul Smelling Discharge Call your doctor if you observe: Fever of 101 or Higher, Inability to urinate, Inability to have a bowel movement, Using more than one pad per hour Cleanse incision/area with: Soap & Water Additional Instructions: If you experience any of the following, contact your healthcare provider. * Bleeding that soaks a pad every hour for 2 hours * Fever 100.4 or higher * Unrelieved incision or abdominal pain * Swelling, redness, discharge or bleeding from your incision or episiotomy site * Your incision begins to separate * Problems urinating (including inability to urinate or burning while urinating). * Visual changes * Severe headache * Flu-like symptoms * Pain or redness in one of both of your breasts * Pain, warmth, tenderness or swelling in your legs, especially the calf area * Frequent nausea and vomiting * Symptoms of depression or anxiety If you experience any of the following, call 911 or go to the nearest Emergency Room. * Chest pain * Problems breathing * Seizure activity * Partial or complete paralysis of a body part, slurred speech, weakness or drooping of the face, or a sudden inability to walk or hold your balance Allergies/Adverse Reactions: Allergies nickel Allergy (Verified 03/17/20 23:53) Rash aspirin Adverse Reaction (Verified 03/17/20 23:53) Upset Stomach lactose Adverse Reaction (Verified 03/17/20 23:53) Upset Stomach Medications to take at Discharge Oxycodone [Oxyir] 5 mg PO Q6H PRN PRN 7 Days #12 tab 03/25/20 The following prescriptions were given: Oxycodone [Oxyir] 5 mg PO Q6H PRN PRN 7 Days #12 tab PRN Reason: Pain Score 6-1010 Transmission [id number] Please Follow Up With: Nilo Hull MD When: 6 weeks Primary Care Physician: Care Physician,No Primary [Primary Care Provider] - Test Results: Test results from this visit will be discussed in further detail at your follow- up appointment, if applicable. <Rika Kuhn - Last Filed: 03/27/20 06:22> May resume sexual activity in: 4-6 weeks Additional Instructions: If you experience any of the following, contact your healthcare provider. * Bleeding that soaks a pad every hour for 2 hours * Fever 100.4 or higher * Unrelieved incision or abdominal pain * Swelling, redness, discharge or bleeding from your incision or episiotomy site * Your incision begins to separate * Problems urinating (including inability to urinate or burning while urinating). * Visual changes * Severe headache * Flu-like symptoms * Pain or redness in one of both of your breasts * Pain, warmth, tenderness or swelling in your legs, especially the calf area * Frequent nausea and vomiting * Symptoms of depression or anxiety If you experience any of the following, call 911 or go to the nearest Emergency Room. * Chest pain * Problems breathing * Seizure activity * Partial or complete paralysis of a body part, slurred speech, weakness or drooping of the face, or a sudden inability to walk or hold your balance Please Follow Up With: Nilo Hull MD - Mood follow up When: 2-3 weeks Test Results: Test results from this visit will be discussed in further detail at your follow- up appointment, if applicable.
[2020-03-26] MEDS: Ibuprofen 600 MG Tablet PO ×2 (03:06→11:00)
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
[2020-03-26] MEDS: oxyCODONE 5 MG Tablet PO (20:55)
[2020-03-27 01:25] VITALS: BP 110/71; PULSE 68; RESP 18; TEMP 36.9
--- NOTE | 2020-03-27 06:14 | PCM.PN.OB ---
Subjective: No issues overnight. Denies significant pain, but relates back soreness. She thinks it may be related to epidural. OOB, voiding without difficulty. Denies heavy lochia. She is breast and formula feeding. Last smoked prior to admission. Objective: AVSS - Physical Exam Vitals/I&O's: Vital Signs Temp Pulse Resp BP Pulse Ox 98.4 F 68 18 110/71 98 03/27/20 01:25 03/27/20 01:25 03/27/20 01:25 03/27/20 01:25 03/26/20 20:50 Oxygen Delivery Method Room Air Weight: 90.5 kg Body Mass Index (BMI) 28.6 Intake and Output for Last 24 Hours 03/25/20 03/26/20 03/27/20 23:59 23:59 23:59 Intake Total 1932.84 / 1932.84 1000 / 1000 Output Total 700 / 700 450 / 450 Balance 1232.84 / 1232.84 550 / 550 General: Alert, Oriented x3, Cooperative, No apparent distress HEENT: Atraumatic, Normocephalic Lungs: Clear to auscultation, Normal air movement Cardiovascular: Regular rate, Regular Rhythm, Normal S1, Normal S2 Abdomen: Soft, Non Tender, Non-Distended Extremities: No edema, No Calf Tenderness Neurological: Neuro grossly intact Psych/Mental Status: Normal Affect, Appropriate, Alert and oriented to time, place, person, mood and affect Current Medications Acetaminophen (Tylenol) 1,000 mg PO Q8H PRN PRN PRN Reason: Pain Score 1-3/10 Bisacodyl (Dulcolax) 10 mg RECTAL UD PRN PRN Reason: If no BM Dibucaine (Dibucaine) 1 applic TOPICAL TID PRN PRN; Protocol PRN Reason: Discomfort Hydrocortisone (Hytone) 1 applic TOPICAL TID PRN PRN; Protocol PRN Reason: Discomfort Ibuprofen (Motrin) 600 mg PO Q6H PRN PRN PRN Reason: Pain Score 1-3/10 Last Admin: 03/26/20 11:00 Dose: 600 mg Documented by: Methylergonovine Maleate (Methergine) 0.2 mg IM X1 PRN PRN Reason: Excess bleeding/uterine atony Ondansetron HCl (Zofran) 4 mg IV Q4H PRN PRN PRN Reason: Nausea Oxycodone HCl (Oxyir) 5 - 10 mg PO Q4H PRN PRN PRN Reason: Pain Score 4-10/10 Last Admin: 03/26/20 20:55 Dose: 5 mg Documented by: Senna/Docusate Sodium (Senokot-S, Shannan-Colace) 1 - 2 tablet PO DAILY PRN PRN PRN Reason: Constipation Simethicone (Mylicon) 80 mg PO PCHS PRN PRN Reason: Indigestion/Stomach pain Sodium Chloride () 5 - 15 ml IV UD PRN PRN Reason: SALINE FLUSH Medical Necessity - Tobacco Use Smoking Status: Current every day smoker Assessment/Plan All Active Problems 39 weeks gestation of (Acute) Decreased movement (Acute) Spotting complicating in third trimester (Resolved) 24yo [id number] PPD#2 s/p doing well. -Breast and formula feeding -Rh positive -Advised smoking cessation. Pt declines nicotine patch -d/c home today
[2020-03-27] MEDS: Ibuprofen 600 MG Tablet PO (09:08)
[2020-03-27 09:47] VITALS: BP 111/59; PULSE 73; RESP 16; TEMP 37.1; O2SAT 100
[2020-03-27 09:48] VITALS: BP 111/59; PULSE 72
== END 2020-03-27 10:45 | disposition home or self-care (01) | DRG 560 ==
PROVIDERS: Obstetrics & Gynecology; Admitting Provider Obstetrics & Gynecology; Visit Provider Obstetrics & Gynecology
DX: O69.81X0 Labor and delivery complicated by cord around neck, without compression, not applicable or unspecified (principal); O71.82 Other specified trauma to perineum and vulva; O99.334 Smoking (tobacco) complicating childbirth; F17.200 Nicotine dependence, unspecified, uncomplicated; Z3A.40 40 weeks gestation of pregnancy; Z37.0 Single live birth
CPT/HCPCS: 59025; 59050; 85025; 86850; 86900; 86901; 99218; J7120; G0378

== ENCOUNTER 2020-04-01 20:12 | Emergency (ER) | payer MEDICAID, SELFPAY ==
[2020-03-25 12:12] VITALS: BMI 28.6
[2020-04-01 20:13] VITALS: BP 122/75; PULSE 93; RESP 18; TEMP 36.6; O2SAT 96; BMI 26.9
--- NOTE | 2020-04-01 20:32 | CT_ITS ---
STUDY: CT ABDOMEN AND PELVIS WITHOUT CONTRAST REASON FOR EXAM: Female, 24 years old. RT FLANK PAIN RADIATING INTO GROIN,PT POST VAGINAL X 1 WEEK RADIATION DOSAGE (If Supplied By Facility): CTDIvol = ( 9.48 ) mGy, DLP = ( 528.29 ) mGycm TECHNIQUE: Transaxial images were obtained from the dome of the diaphragm to the symphysis pubis without oral contrast, and without intravenous contrast. Sagittal and coronal images were reconstructed. Individualized dose optimization techniques were used for this CT. COMPARISON: 05/26/2009 FINDINGS: There is minor prominence of interstitial markings in the lower lobes.. The visualized portions of the heart are within normal limits. Normal liver. Normal gallbladder and extrahepatic biliary system. Normal spleen. Normal pancreas. Normal bilateral adrenal glands. Normal right kidney. Normal left kidney. Normal visualized stomach. Normal small intestine. Normal colon. The appendix is visualized and appears normal. Normal abdominal aorta. Normal inferior vena cava. Normal retroperitoneum. Uterus is enlarged consistent with status depressing the dome of the bladder which is incompletely distended. Normal abdominal wall. Normal osseous structures. CT/Abdomen/Pelvis without Cont IMPRESSION: Enlarged uterus. No acute abnormalities Electronically Signed: Teofilo Vazquez MD at 21:11 EDT , Service support ,
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
[2020-04-01] MEDS: 0.9% Normal Saline 1,000 ML 150 ML IV (20:44)
[2020-04-01] MEDS: Ketorolac 30 MG/ML Syringe IV (20:44)
[2020-04-01 20:45] LABS: Absolute Neutrophil Count 8.4 X10^3/uL (2.0-7.7); Basophil# 0.04 X10^3/uL; Basophil% 0.3 % (0-1); Eosinophil# 0.07 X10^3/uL; Eosinophils% 0.6 % (0-5); Hematocrit 38.9 % (37-47); Hemoglobin 12.8 g/dL (12.0-15.0); Lymphocyte % 20.7 % (19-41); Mean Corp Hgb Conc 32.9 g/dL (32-36); Mean Corpuscular Hgb 30.1 pg (27.0-32.0); Mean Corpuscular Volume 91.5 fL (81-99); Mean Platelet Vol. 11.3 fl (6.2-12.0); Monocyte# 0.58 X10^3/uL; NRBC Flagged by Analyzer 0 % (0-5); Neutrophil # 8.42 X10^3/uL (2.7-7.7); Neutrophil % 72.9 % (47-70); Platelet Count 329 K/mm3 (150-450); RBC Distribution Width CV 13.2 % (11.6-14.6); RBC Distribution Width SD 42.8 fl (35.1-43.9); Red Blood Count 4.25 M/mm3 (4.2-5.4); White Blood Count 11.6 K/mm3 (4.4-11.0)
[2020-04-01 21:03] LABS: Anion Gap 7 (5-15); BUN 9 mg/dL (7-18); BUN/Creat Ratio 12.4 RATIO (10-20); Calcium,Total 8.7 mg/dL (8.5-10.1); Chloride 113 mmol/L (98-107); Creatinine, Serum 0.72 mg/dL (0.55-1.02); EST Glomerular Filtration Rate 103 mL/min (>60); Est Glom Filt Rate - Afr Amer 124 mL/min (>60); Estimated Creatinine Clearance 128.04 ml/min; Glucose 80 mg/dL (74-106); Potassium 3.8 mmol/L (3.5-5.1); Sodium Level 142 mmol/L (136-145)
[2020-04-01 21:47] LABS: Bacteria 0 SEEN /hpf (None Seen)
[2020-04-01 21:50] LABS: Color, Urine Yellow (Yellow); Glucose, Dipstick Normal (Normal); Ketone-Dipstick Negative (Negative); Leukocyte Esterase-Dipstick 100 /ul (Negative); Nitrite-Dipstick Negative (Negative); Occult Blood-Urine 150 /ul (Negative); Protein-Dipstick Negative (Negative); Urine Bilirubin Dipstick Negative (Negative); Urine Clarity Clear (Clear); Urine Urobilinogen Normal (Normal)
[2020-04-01 21:59] LABS: Red Blood Cells-Urine 5-10 SEEN /hpf (0-5); White Blood Cells 10-25 SEEN /hpf (0-5)
[2020-04-01 22:00] LABS: Mucous, Urine RARE /hpf (<or=2+); Squamous Epithelial Cells - UA 0-5 SEEN /hpf (5-10)
--- NOTE | 2020-04-01 22:23 | US_ITS ---
PROCEDURE: ULTRASOUND OF THE FEMALE PELVIS - COMPLETE REASON FOR EXAM: Female, 24 years old. BACK PAIN RADIATES TO PELVIS X 2 DAYS NO LMP TECHNIQUE: Transabdominal and Transvaginal TECHNICAL QUALITY: Adequate. COMPARISON: CT of abdomen and pelvis dated April 01, 2020 FINDINGS: The uterus is anteverted and is in a midline position. The uterus measures 13.0 x 10.6 x 8.7 cm. There is no demonstrated myometrial mass. Diffuse heterogeneity of the uterine parenchyma likely related to recent state. The endometrium measures 18 mm in thickness, and is heterogeneous (striated). There is no demonstrated endometrial mass. Normal uterine cervix. The right ovary is visualized. The right ovary measures 2.8 x 2.0 x 1.5 cm. There is no right ovarian cyst or ovarian mass. There is no visualized right adnexal mass or complex lesion. The left ovary is visualized. The left ovary measures 2.6 x 2.1 x 1.1 cm. There is no left ovarian cyst or ovarian mass. There is no visualized left adnexal mass or complex lesion. Normal color vascular flow and Doppler signal is demonstrated in both ovaries. There is no fluid in the cul-de-sac. US/Pelvic (Non ) IMPRESSION: Diffuse heterogeneity of the uterine parenchyma likely related to recent state. Electronically Signed: Kevin Fernandez MD at 23:17 EDT , Service support ,
[2020-04-01 23:33] VITALS: BP 125/74; PULSE 68; RESP 15; O2SAT 99
== END 2020-04-01 23:33 | disposition home or self-care (01) ==
PROVIDERS: Emergency Provider Emergency Medicine; PCP Nurse Practitioner Family
DX: O90.89 Other complications of the puerperium, not elsewhere classified (principal); R10.9 Unspecified abdominal pain; F17.200 Nicotine dependence, unspecified, uncomplicated
CPT/HCPCS: 74176; 76856; 80048; 81001; 85025; 93976; 96361; 96374; 99284; J7030; A4216

== ENCOUNTER 2020-05-11 11:06 | Day surgery (SDC) | payer MEDICAID, SELFPAY ==
[2020-05-04 15:14] LABS: Hematocrit 40.9 % (37-47); Hemoglobin 13.3 g/dL (12.0-15.0); Mean Corp Hgb Conc 32.5 g/dL (32-36); Mean Corpuscular Hgb 29.1 pg (27.0-32.0); Mean Corpuscular Volume 89.5 fL (81-99); Mean Platelet Vol. 12.1 fl (6.2-12.0); Platelet Count 225 K/mm3 (150-450); RBC Distribution Width SD 42.5 fl (35.1-43.9); Red Blood Count 4.57 M/mm3 (4.2-5.4); White Blood Count 8.7 K/mm3 (4.4-11.0)
[2020-05-04 15:27] LABS: International Normalized Ratio 0.9; Prothrombin Time (Protime)PT. 11.6 SECONDS (11.7-14.9)
[2020-05-04 15:28] LABS: Partial Thromboplast Time 30.1 Seconds (24.1-36.2)
[2020-05-04 15:41] LABS: AST(SGOT) 16 U/L (15-37); Alanine Aminotransfer ALT/SGPT 19 U/L (13-56); Albumin, Serum 3.6 g/dL (3.2-5.0); Alkaline Phosphatase 76 U/L (45-117); Globulin 3.7 g/dL (2.2-4.2); Protein, Total 7.3 g/dL (6.4-8.2)
--- NOTE | 2020-05-08 14:08 | HP.PCM_ITS ---
History and Physical Date of Admission: 05/11/20 Surgical History and Physical Kelly Louis, a 24 year old female 2 0 1 0 2, presents for L/S bilateral salpingectomy on May 11, 2020 at 10:30. -- Desires Permanent Sterilization -- She has considered this form of control for quite some time. MEDICATIONS HISTORY: Current medications prescribed by our practice are: 1. Zoloft 50 mg tablet, 1/2 daily for 1 week, then 1 daily Patient is also takin. Topamax 50 mg tablet, BID ALLERGIES: Aspirin, Sob, rain, Aspirin, Shortness of breath, Nickel, Hives and/or rash, Bentyl and Facial swelling Infections - Chicken pox childhood and HPV Illnesses - IBS, depression Accidents - no injuries of consequence Hospitalizations - None rotating hip, possible curvature of spine, disc issue and (lumbar); Review of Systems: GENERAL - Denies fever, or chills SKIN - Denies skin changes EYES - Denies visual changes EARS - Denies difficulty hearing NOSE - Denies nasal congestion or bleeding MOUTH - Denies sore throat or difficulty swallowing NECK - Denies pain or swelling RESPIRATORY - Denies shortness of breath or wheezing CARDIOVASCULAR - Denies palpitations or chest pain GASTROINTESTINAL - Denies nausea, vomiting, diarrhea, constipation GENITOURINARY - Denies dysuria, frequency of urination, incontinence of urine MUSCULOSKELETAL - Denies joint or muscle pain NEUROLOGICAL - Denies localized numbness or weakness PSYCHIATRIC - Denies depression or anxiety ENDOCRINE - Denies heat or cold intolerance, weight loss or gain HEMATO-IMMUNOLOGIC - Denies excesive bleeding with cuts SOCIAL HISTORY: Alcohol Use - occasionally not while Smoking - Smoker since age 9. 1/2 PPD- 3/4 PPD, ATQ. Diet - caffeine > 2 drinks per day, needs improvement, lactose intolerant and can do yogurt Lifestyle - Exercise - regular Seat Belt Use - always Employer - [employer]) Job Description - [employer] [place] Illicit Drug Use - denies use of street drugs Sexual Activity - single sexual partner Residence - with SO Place of - [place] Hours Worked - 40 hours per week Spouse-Sig Other Name - Hank Hines DAVID Spouse-Sig Other Occupation - [employer] Spouse-Sig Other Phone No - [phone] Children Name(s) - Radha Kar) Control - geting tubal 05/11/20 FAMILY HISTORY: Mother: DM II. Father: brain cancer. MENSTRUAL HISTORY: LMP Known?- DefiniteAmount/Duration - 4-5 days, Regularity - Regular, Frequency - 28 days, LMP - 04/09/20, Age Onset Menarche - 10 PAST PREGNANCIES: Total Pregnancies - 3; Full Term Pregnancies - 2; Premature - 0; Abortions, Induced - 0; Abortions, Spontaneous - 1; Ectopics - 0; Multiple Births - 0; Living Children - 2 SURGICAL HISTORY: 1. 09/08/2014 suction D and C ; Dr Stiven Nice - 2. 07/06/2015 oral surgery - 5 teeth extracted ; Dr. Addison - PHYSICAL EXAM BP- 90/70 Sitting, Right arm, regular cuff Weight- 183.28895 lbs Height- 69.00 inch BMI:27.14 CONSTITUTIONAL - NAD, well nourished, and well developed SKIN - No rash, lesions, or ulcers HEENT - Normocephalic, PERRLA, EOMI NECK - No nodes, no nuchal rigidity and thyroid normal size and texture LYMPH NODES - Palpation of lymph nodes in neck and groins within normal limits LUNGS - CTA x2 without wheezes, crackles or rales CARDIAC - Regular rate and rhythm without rubs, murmurs, or gallops BREAST - No dominant masses, no tenderness, no axillary adenopathy, no nipple discharge, no skin changes ABDOMEN - Without hepatosplenomegaly, distention, masses, rebound, or guarding; normal bowel sounds; no hernias EXTREMITIES - No edema or calf tenderness NEUROLOGICAL - Cranial nerves II-XII grossly intact PSYCHIATRIC - A and O to time, place, person, mood and affect External Genitial Vagina - non-tender without lesions Urethra/Urethral Meatus - non-tender Bladder - non-tender Vagina - vaginal madden are pink and moist without loss of rugae and no evidence of atropy Cervix - without cervical motion tenderness and has normal size and features without evident lesions Uterus - multiparous size 6 cm & wt 75-125 g Adnexa - clear without masses or tenderness ASSESSMENT/PLAN: Desires Permanent Sterilization. Plan L/S Bilateral Salpingectomy. Discussed RBAs including permanent nature of the procedure, failure rate of 1-2 percent, and the availability of other non-permanent BC options and all questions answered.
[2020-05-11 11:54] VITALS: BP 96/52; PULSE 48; RESP 16; TEMP 36.1; O2SAT 100; BMI 26.7
[2020-05-11] MEDS: Lactated Ringers 1,000 ML 100 ML IV ×2 (12:05→14:14)
--- NOTE | 2020-05-11 12:40 | FALS_PTH ---
PATIENT: NATASHA RUELAS LOC: [facility] U#:[id number] AGE/SX: 24/F ROOM: RE05/11/[address]: Dr. Nilo Hull MD : [id number] BED: DIS: 05/11/2020 SPEC #: [id number] RECD: 05/11/20 14:57 STATUS: JEREMIAH FOREIGN #: [id number] SWATI: 05/11/20 12:[address]: Nilo Hull DEPT: SURGICAL PATHOLOGY RECD BY: Derrick Rose ENTERED: 05/12/20 07:15 SP TYPE: FALL TUBES OTHR DR: Sandie Bui, MARCELL Tissues: Fallopian tube Procedures: Surgery Specimen Level II HEADER OPERATION: Laparoscopic salpingectomy PRE-OP DIAGNOSIS: Sterilization TISSUE SUBMITTED: Bilateral fallopian tubes MICROSCOPIC DIAGNOSIS Right and left fallopian tubes, bilateral salpingectomies: Two complete segments of fallopian tubes. AM:stefano 05/13/20 MICROSCOPIC DESCRIPTION Slides are reviewed. GROSS DESCRIPTION Received in fixative is one container labeled with the patient's name and designated bilateral fallopian tubes. The specimen consists of two fallopian tubes with an average length of 7 cm and has an average diameter of 0.6 cm. Both fallopian tubes have normal fimbriated ends. It Compliance Analyst sections are submitted in two cassettes as follows: 1 - one fallopian tube along with cysts, 2 - the other fallopian tube along with cysts. / AM:stefano 05/12/20 TC:4 CPT: 79114 x2
[2020-05-11] MEDS: Cefotetan 2 GM in 0.9% NS 100 ML IV (13:10)
--- NOTE | 2020-05-11 13:18 | OP.PCM_ITS ---
Report of Operation Date of Procedure: 05/11/20 Pre-Operative Diagnosis: Desires Permanent Sterilization Post-Operative Diagnosis: Desires Permanent Sterilization Surgery/Procedure Performed:: Laparoscopic Bilateral Salpingectomy Description of Surgical Findings:: Normal pelvis cytogenetics laboratory manager: Yeni Lim Type of Anesthesia:: General - Endotracheal Anesthesiologist: Gordy Mariscal Estimated Blood Loss (mL): Minimal Fluids Replaced: Crystalloid Description of Procedure: Surgeon: Nilo Hull MD, FACOG Indications: This is a 24 year old patient who has the above diagnosis. She has considered sterilization for quite some time. She is aware of the permanent nature of the procedure, the failure rate of 1-2%, and the availability of other nonpermanent control options. All questions were answered to consider the patient well-informed. Procedure: The patient was taken to the operating room where after induction of general anesthesia, she was placed in the dorsolithotomy position and prepped and draped in the usual sterile fashion. Approximately 20 cc of half percent ropivacaine was injected subumbilically, suprapubically and midway between. A 5 mm bladeless trocar was placed subumbilically and intraperitoneal placement confirmed. After CO2 insufflation was complete, a 5 mm bladeless trocar was introduced suprapubically. The above findings were noted. A 5 mm bladeless port was then placed midway between these 2 ports for tubal manipulation. Each fallopian tube was identified to its fimbriated end and an Enseal device was used to divide the mesosalpinx to the uterus. Tubes were removed through the lower 5 mm port. The peritoneal cavity and upper abdomen were examined and noted to be normal. Laparoscopic instruments with as much CO2 gas as possible were removed and incisions were closed with interrupted 4-0 Monocryl suture. Dermabond was placed across the incision. The patient tolerated the procedure well was taken to recovery room in satisfactory condition and sponge instrument and needle counts were all reportedly correct. Estimated blood loss for the case was minimal. There were no apparent complications of the surgery. Specimens to pathology was bilateral tubes - Admit VTE Documentation VTE Present on Admission: Yes VTE Mechan Device Prophylaxis: SCD's
--- NOTE | 2020-05-11 13:20 | DCINST_ITS ---
Discharge Diet: No Restrictions - Increase fluid intake for the next 48 hours. Discharge Activity: Return to Normal Activity, May Drive - when you are no longer taking pain/narcotic medicines., May Shower, May Take a Tub Bath May resume sexual activity in: 2 weeks Additional Activity Instructions:: Ambulate often the next week after surgery. Nothing in the vagina for 5 days. Call your doctor if your incision/area has: Continuous Slow Oozing, Sudden Increased Bleeding, Increased Pain/ Swelling, Increased Redness, Foul Smelling Discharge Call your doctor if you observe: Fever of 101 or Higher, Inability to urinate, Inability to have a bowel movement, Using more than one pad per hour Allergies/Adverse Reactions: Allergies nickel Allergy (Verified 04/30/20 11:11) Rash aspirin Adverse Reaction (Verified 04/30/20 11:11) Upset Stomach lactose Adverse Reaction (Verified 04/30/20 11:11) Upset Stomach Medications to take at Discharge Duloxetine HCl 30 mg PO QHS 04/30/20 Rizatriptan Benzoate [Maxalt] 10 mg PO .X1 PRN 04/30/20 Topiramate [Topamax] 25 mg PO BID 04/30/20 Oxycodone [Oxyir] 5 mg PO Q6H PRN PRN 7 Days #10 tab 05/11/20 The following prescriptions were given: Oxycodone [Oxyir] 5 mg PO Q6H PRN PRN 7 Days #10 tab PRN Reason: Pain Score 6-10/10 Transmission Status: Sent to [facility] Orders to be completed after discharge: ,Urine Time Frame: 05/11/20, Facility: [facility], Location: [facility] Primary Care Physician: Sandie Bui NP, HEAVY EQUIPMENT SUPERVISOR-C [Primary Care Provider] - Test Results: Test results from this visit will be discussed in further detail at your follow- up appointment, if applicable. Please Follow Up With: Nilo Hull MD - [phone] When: 2-3 weeks
[2020-05-11] MEDS: Ropivacaine 0.5% 30 ML Vial (13:30)
[2020-05-11 14:04] VITALS: BP 107/71; BP 96/52; PULSE 52; RESP 16; TEMP 36.1; O2SAT 100
[2020-05-11 14:15] VITALS: BP 109/77; BP 96/52; PULSE 51; RESP 16; O2SAT 100
[2020-05-11 14:30] VITALS: BP 111/73; BP 96/52; PULSE 48; RESP 16; O2SAT 98
[2020-05-11 14:38] VITALS: BP 113/76; BP 96/52; PULSE 46; RESP 16; TEMP 36.1; O2SAT 99
[2020-05-11 15:20] VITALS: BP 105/65; BP 96/52; PULSE 44; RESP 16; TEMP 36.2; O2SAT 99
== END 2020-05-11 15:35 | disposition home or self-care (01) ==
LOC: SDC 11:08 → AC 11:26
PROVIDERS: Anesthesiology; PCP Nurse Practitioner Family; Referring Provider Obstetrics & Gynecology; Visit Provider Obstetrics & Gynecology
PROC: (CPT 58661; principal; 2020-05-11 12:25)
DX: Z30.2 Encounter for sterilization (principal); F32.9 Major depressive disorder, single episode, unspecified; F41.9 Anxiety disorder, unspecified; F17.210 Nicotine dependence, cigarettes, uncomplicated; G43.909 Migraine, unspecified, not intractable, without status migrainosus; Z11.59 Encounter for screening for other viral diseases; Z79.899 Other long term (current) drug therapy
CPT/HCPCS: 00840; 58661; 36415; 80076; 85027; 85610; 85730; 86850; 86900; 86901; 87635; 88302; C9803; J7120; C1760; J2405; U0003

== ENCOUNTER 2020-06-20 14:39 | Emergency (ER) | payer MEDICAID, SELFPAY ==
[2020-06-20 14:40] VITALS: BP 133/64; PULSE 79; RESP 16; TEMP 35.9; O2SAT 99; BMI 26.1
--- NOTE | 2020-06-20 14:57 | ED.VIS.GEN ---
History of Present Illness <Peter Fischer - Last Filed: 06/20/20 15:44> Informant: Patient Onset: Yesterday Narrative: 24-year-old female presents with heavy vaginal bleeding. She states she is 3 months and had her tubes removed 1 month ago. Yesterday she started her expected menstrual cycle, but today the bleeding became abnormally heavy. Since approximately 5 AM she has used 1 super tampon per hour. Minimal clots. She also feels dizzy with positional changes, no syncope. She has nausea and bilateral lower abdominal cramping which she said is normal during her period. She called her LIVESTOCK BRANDS INSPECTOR who said they could prescribe progesterone or she could go to the ED. Denies fevers, chills, vomiting, diarrhea, dysuria, hematuria, or frequency. <Dana Baez - Last Filed: 06/20/20 15:59> Chief Complaint: Vag Bleeding Past Medical History <Peter Fischer - Last Filed: 06/20/20 15:44> Past Medical History: - - migraines Surgical History: no surgical history Smoking Status: Current every day smoker <Dana Baez - Last Filed: 06/20/20 15:59> - Allergies and Home Meds Allergies/Adverse Reactions: Allergies nickel Allergy (Verified 06/20/20 14:44) Rash aspirin Adverse Reaction (Verified 06/20/20 14:44) Upset Stomach iodine Adverse Reaction (Verified 06/20/20 14:44) Itching lactose Adverse Reaction (Verified 06/20/20 14:44) Upset Stomach Primary Care Physician: Nilo Hull MD [STAFF PHYSICIAN] - (call for instructions/prescription) Sandie Bui NP, PEDIATRIC RN-C [Primary Care Provider] - Review of Systems General: Denies: Chills, Fever, Sweats Eyes: Denies: Visual changes - bilaterally, Diplopia ENT: Denies: Rhinorrhea, Sore throat Cardiovascular: Denies: Chest pain, Palpitations Respiratory: Denies: Dyspnea, Cough, Dyspnea on exertion Gastrointestinal: Reports: Abdominal pain, Nausea. Denies: Vomiting, Diarrhea, Melena, Hematochezia Genitourinary: Reports: - - vaginal bleeding. Denies: Dysuria, Hematuria, Frequency Musculoskeletal: Denies: Back pain, Extremity Pain Skin: Denies: Rash, Wounds Neurological: Denies: Weakness <LaurieDana villasenor - Last Filed: 06/20/20 15:59> Physical Exam Vital Signs/Narrative: Vital Signs Temp Pulse Pulse Pulse Pulse Resp BP 06/20/20 15:13 60 58 L 87 06/20/20 14:40 96.6 F L 79 16 133/64 H BP BP BP Pulse Ox 06/20/20 15:13 117/66 125/65 H 122/76 H 06/20/20 14:40 99 <Peter Fischer - Last Filed: 06/20/20 15:44> Vital Signs/Narrative: Vital Signs Temp Pulse Resp BP Pulse Ox 06/20/20 14:40 96.6 F L 79 16 133/64 H 99 General: Well nourished, Well developed, No Acute Distress Head: Normocephalic, Atraumatic Eyes: Perrl, EOMI ENT: Moist mucous membranes, No rhinorrhea Neck: Supple, Nontender Cardiovascular: Regular rate, Regular rhythm, No murmurs Respiratory: No distress, CTA bilaterally, Chest nontender Abdomen: Soft, Nontender, Nondistended, Normal bowel sounds Back: Normal Inspection Extremities: No edema Skin: Normal color, No rash Neurological: Alert, Oriented x3, Cranial nerves II-XII grossly intact Psychological: Normal affect, Normal Mood <Dana Baez - Last Filed: 06/20/20 15:59> Diagnostic/Tx/Re-eval Laboratory Tests 06/20/20 06/20/20 Range/Units 15:05 15:00 WBC 7.1 (4.4-11.0) K/mm3 RBC 4.49 (4.2-5.4) M/mm3 Hgb 12.9 (12.0-15.0) g/dL Hct 39.6 (37-47) % MCV 88.2 (81-99) fL MCH 28.7 (27.0-32.0) pg MCHC 32.6 (32-36) g/dL RDW Std Deviation 43.4 (35.1-43.9) fl RDW Coeff of Radha 13.3 (11.6-14.6) % Plt Count 265 (150-450) K/mm3 MPV 11.9 (6.2-12.0) fl Immature Gran % (Auto) 0.100 (0.0-0.9) % Neut % (Auto) 61.4 (47-70) % Lymph % (Auto) 32.5 (19-41) % [place] % (Auto) 5.0 (0-10) % Eos % (Auto) 0.7 (0-5) % Baso % (Auto) 0.3 (0-1) % Absolute Neuts (auto) 4.3 (2.0-7.7) X10^3/uL Absolute Lymphs (auto) 2.30 (0.83-4.51) X10^3/uL Nucleated RBC % 0 (0-5) % Urine Color Yellow (Yellow) Urine Clarity Sl. Cloudy (Clear) Urine pH 6.0 (5.0 - 8.0) Ur Specific [place] 1.025 (1.002-1.030) Urine Protein 15 H (Negative) mg/dl Urine Glucose (UA) Normal (Normal) mg/dl Urine Ketones 5 H (Negative) mg/dl Urine Occult Blood 250 H (Negative) /ul Urine Nitrite Negative (Negative) Urine Bilirubin Negative (Negative) mg/dL Urine Urobilinogen Normal (Normal) mg/dl Ur Leukocyte Esterase 25 H (Negative) /ul Urine RBC > 100 SEEN (0-5) /hpf Urine WBC 0-5 SEEN (0-5) /hpf Ur Squamous Epith Cells 0-5 SEEN (5-10) /hpf Urine Bacteria 0 SEEN (None Seen) /hpf Urine Mucus 0 SEEN (<or=2+) /hpf Urine Test Negative Negative - Medical Decision Making Seen and evaluated independently and in conjunction with physician contact center assistant. Agree with notes above unless documented otherwise. Patient well-appearing, no tachycardia, benign abdomen. Symptoms are consistent with menstrual cycle, but heavier than normal bleeding. Labs, urine, , orthostatics obtained. <Peter Fischer - Last Filed: 06/20/20 15:44> - Medical Decision Making Patient presented with heavy menstrual bleeding. She appears well and nontoxic. Vital signs within normal limits. Orthostatic vitals negative. Abdominal exam is benign. Labs show normal hemoglobin. Urine negative. At this time she is stable for outpatient follow up with her OBGYN. She actually called the nurse line while I was in the room and her OB is sending in a progesterone taper. Return for new or worsening issues. She was discharged home in stable condition. <Dana Baez - Last Filed: 06/20/20 15:59> ED Disposition <Peter Fischer - Last Filed: 06/20/20 15:44> <Dana Baez - Last Filed: 06/20/20 15:59> - Plan for ED Patient: Disposition: Home or Assisted Living Diagnosis: Menorrhagia Instructions: ED Bleeding Menstrual Heavy Referrals: Sandie Bui NP, PEDIATRIC RN-C [Primary Care Provider] - Nilo Hull MD [STAFF PHYSICIAN] - (call for instructions/prescription)
[2020-06-20 15:12] LABS: Bacteria 0 SEEN /hpf (None Seen); Mucous, Urine 0 SEEN /hpf (<or=2+)
[2020-06-20 15:13] VITALS: BP 117/66; BP 122/76; BP 125/65; PULSE 58; PULSE 60; PULSE 87
[2020-06-20 15:37] LABS: Absolute Neutrophil Count 4.3 X10^3/uL (2.0-7.7); Basophil# 0.02 X10^3/uL; Basophil% 0.3 % (0-1); Eosinophil# 0.05 X10^3/uL; Eosinophils% 0.7 % (0-5); Hematocrit 39.6 % (37-47); Hemoglobin 12.9 g/dL (12.0-15.0); Lymphocyte % 32.5 % (19-41); Mean Corp Hgb Conc 32.6 g/dL (32-36); Mean Corpuscular Hgb 28.7 pg (27.0-32.0); Mean Corpuscular Volume 88.2 fL (81-99); Mean Platelet Vol. 11.9 fl (6.2-12.0); Monocyte# 0.35 X10^3/uL; NRBC Flagged by Analyzer 0 % (0-5); Neutrophil # 4.34 X10^3/uL (2.7-7.7); Neutrophil % 61.4 % (47-70); Platelet Count 265 K/mm3 (150-450); RBC Distribution Width CV 13.3 % (11.6-14.6); RBC Distribution Width SD 43.4 fl (35.1-43.9); Red Blood Count 4.49 M/mm3 (4.2-5.4); White Blood Count 7.1 K/mm3 (4.4-11.0)
[2020-06-20 15:37] LABS: Color, Urine Yellow (Yellow); Glucose, Dipstick Normal (Normal); Ketone-Dipstick 5 mg/dl (Negative); Leukocyte Esterase-Dipstick 25 /ul (Negative); Nitrite-Dipstick Negative (Negative); Occult Blood-Urine 250 /ul (Negative); Protein-Dipstick 15 mg/dl (Negative); Specific Gravity, Urine 1.025 (1.002-1.030); Urine Bilirubin Dipstick Negative (Negative); Urine Clarity Sl. Cloudy (Clear); Urine Urobilinogen Normal (Normal)
[2020-06-20 15:43] LABS: Internal QC Validated? YES +Cl - CLEAR BKGD; Pregnancy, Urine Negative Negative; Red Blood Cells-Urine > 100 SEEN /hpf (0-5); Squamous Epithelial Cells - UA 0-5 SEEN /hpf (5-10); White Blood Cells 0-5 SEEN /hpf (0-5)
[2020-06-20 16:03] VITALS: BP 122/76
== END 2020-06-20 16:04 | disposition home or self-care (01) ==
PROVIDERS: Emergency Provider Physician Assistant; PCP Nurse Practitioner Family
DX: N92.0 Excessive and frequent menstruation with regular cycle (principal); F17.200 Nicotine dependence, unspecified, uncomplicated
CPT/HCPCS: 36415; 81001; 81025; 85025; 99283

== ENCOUNTER 2020-07-10 08:25 | Emergency (ER) | payer MEDICAID, SELFPAY ==
[2020-07-10 08:27] VITALS: BP 158/114; PULSE 81; RESP 16; TEMP 35.6; O2SAT 99; BMI 27.0
--- NOTE | 2020-07-10 08:37 | RAD_ITS ---
STUDY: X-RAY - RIGHT HAND REASON FOR EXAM: Female, 24 years old. INJURY WHILE PUTTING CAR SEAT IN THE CAR. NO SWELLING NOTED TECHNIQUE: 3 view(s) of the hand. COMPARISON: None. FINDINGS: Normal radiocarpal articulation. Normal distal radioulnar joint. Normal visualized carpal bones. Normal carpal articulations Normal carpometacarpal articulation of the thumb. Normal second through fifth carpometacarpal joints. Normal metacarpi. Normal metacarpophalangeal joint of the thumb. Normal interphalangeal joint of the thumb. Normal proximal and distal phalanges of the thumb. Normal metacarpophalangeal joints of the second through fifth fingers. Normal proximal and distal interphalangeal joints of the second through fifth fingers. Normal phalanges of the second through fifth fingers. The soft tissue structures are unremarkable. RAD/Hand Min 3 Views IMPRESSION: Normal x-ray examination of the hand. Electronically Signed: Jamey Potter, at 9:05 EST , Service support ,
--- NOTE | 2020-07-10 08:37 | RAD_ITS ---
STUDY: X-RAY - RIGHT WRIST REASON FOR EXAM: Female, 24 years old. INJURY PUTTING CAR SEAT IN THE CAR. NO SWELLING NOTED TECHNIQUE: 3 view(s) of the wrist were obtained. COMPARISON: None. FINDINGS: Normal visualized distal radius and ulna. Normal radiocarpal articulation. Normal distal radioulnar articulation. Normal carpal bones. Normal carpal articulations. Normal carpometacarpal articulation of the thumb. Normal second through fifth carpometacarpal articulations. Normal visualized metacarpal bones. The soft tissue structures are unremarkable. RAD/Wrist min 3 Views IMPRESSION: Normal x-ray examination of the wrist. Electronically Signed: Jamey Potter, at 9:07 EST , Service support ,
--- NOTE | 2020-07-10 08:45 | ED.DCSUM_ITS ---
- ER Visit Summary Date of Service: 07/10/20 Chief Complaint: Right thumb injury History of Present Illness: The patient is a 24 F presenting with right thumb injury. Patient states she cut her left thumb while at work yesterday. She states because her left thumb is bandaged she was compensating using only her right hand to put in her car seat. While attempting to secure the car seat she injured her right thumb. She denies other complaints. Tetanus is up-to-date. Physical Examination: Vitals are stable. Patient is afebrile. Alert no acute distress. HEENT exam is unremarkable. Neck is supple. Lungs are clear and equal bilaterally. Heart is regular rate and rhythm. Extremities proximal right thumb and right wrist tenderness with painful range of motion. Left thumb nail superficial abrasion/injury with no surrounding signs of infection. Skin is warm and dry. No focal neurologic deficit. Remainder of exam is unremarkable. Emergency Department Course and Treatment: Right hand and and wrist x-ray show no acute process. Patient was given thumb spica Velcro wrist splint. She is advised to ice, elevate, use NSAIDs for pain. Advised to follow-up with her primary care physician. Advised return to ED for worsening complaints. Disposition: Discharge home Impression: Right thumb injury This note was generated with [employer] dictation software. It may contain incorrect words, spelling, and punctuation that were not noted in review of the chart prior to signing ED Disposition - Plan for ED Patient: Instructions: ED Finger Sprain Referrals: Sandie Bui NP, DRESSING ROOM ATTENDANT-C [Primary Care Provider] -
--- NOTE | 2020-07-10 09:45 | DCINST.ED_ITS ---
ED Disposition - Plan for ED Patient: Instructions: ED Finger Sprain Referrals: Sandie Bui NP, ELECTRICAL CONTROLS ENGINEER-C [Primary Care Provider] -
--- NOTE | 2020-07-10 09:45 | ED.DEP ---
ED Disposition - Plan for ED Patient: Instructions: ED Finger Sprain Referrals: Sandie Bui NP, REDUCER-C [Primary Care Provider] -
[2020-07-10] MEDS: Ibuprofen 600 MG Tablet PO (10:16)
== END 2020-07-10 10:17 | disposition home or self-care (01) ==
PROVIDERS: Emergency Provider Emergency Medicine; PCP Nurse Practitioner Family
DX: S69.91XA Unspecified injury of right wrist, hand and finger(s), initial encounter (principal); Z72.0 Tobacco use; X58.XXXA Exposure to other specified factors, initial encounter; Y93.89 Activity, other specified; Y92.89 Other specified places as the place of occurrence of the external cause; Y99.8 Other external cause status
CPT/HCPCS: 73110; 73130; 99283

== ENCOUNTER → 2020-10-14 | Outpatient (CLI) | payer MEDICAID, SELFPAY ==
[2020-10-19 20:49] LABS: HPV Reflexed? NOT INDICATED
== END | disposition home or self-care (01) ==
LOC: LABSPEC 15:53
PROVIDERS: PCP Nurse Practitioner Family; Visit Provider Obstetrics & Gynecology
DX: Z12.4 Encounter for screening for malignant neoplasm of cervix (principal)
CPT/HCPCS: 88175; G0145

== ENCOUNTER 2021-03-22 17:08 | Emergency (ER) | payer MEDICAID, SELFPAY ==
[2021-03-22 17:09] VITALS: BP 138/81; PULSE 103; RESP 18; TEMP 36.6; O2SAT 98; BMI 25.8
--- NOTE | 2021-03-22 17:25 | ED.VIS.FALL ---
HPI HPI - Fall History of Present Illness Chief Complaint: Fall Informant: patient Occured/Mechanism Occurred: Yesterday Narrative: Fell from tree. 8 feet above ground Fall from Height (ft): 8 feet Usually ambulates: Without assistance Pain/Injury Pain Location: upper extremity (Posterior right scapula) and lower extremity (Right ankle/foot) Quality of Pain: Dull and Aching Current Severity: Mild Maximum Severity: Moderate Worsened by: Weightbearing Relieved by: Rest Associated Symptoms Associated Symptoms: Negative for Parasthesias, Weakness, Loss of function, Inability to ambulate, Loss of consciousness and Amnesia Narrative Narrative: Patient is a 25-year-old woman who states she fell from a tree yesterday afternoon. She states she was 8 feet above the ground. She states she landed on her feet. She complains of pain instantaneously right ankle. She denies foot pain. Denies knee pain, hip pain or low back pain. Several hours later she developed pain in the right upper back/right scapular region. She denies head trauma. She denies loss of conscious. She not amnestic. She denies neck pain. She denies paresthesia, anesthesia moderate is present at time of the fall. She denies chest pain or shortness of breath. She denies abdominal pain. Denies change in the color of her urine. She states occasionally she will have a pain proximal medial right calf that shoots downward towards her foot. Tetanus Immunization: 5-10 years Prior similar symptoms: No Recent Illness/Hospitalization: No PFSH [facility] Medical History (Updated 03/22/21 @ 17:[address] [place] Romero MD) IBS (irritable bowel syndrome) Home Medications clindamycin HCl 300 mg PO TID 03/22/21 [History Last Taken Unknown] naproxen 500 mg PO BID #14 tab 03/22/21 [Rx Last Taken Unknown] tobramycin 1 drp EACH EYE 4X/DAY 03/22/21 [History Last Taken Unknown] Allergy/AdvReac Type Severity Reaction Status Date / Time nickel Allergy Rash Verified 03/22/21 17:11 aspirin AdvReac Upset Verified 03/22/21 17:11 Stomach iodine AdvReac Itching Verified 03/22/21 17:11 lactose AdvReac Upset Verified 03/22/21 17:11 Stomach Surgical History (Updated 03/22/21 @ 17:36 by Elizabeth Cm) H/O tubal ligation Social History (Updated 03/22/21 @ 17:[address] [place] Romero MD) household members: spouse and children Smoking Status: Current every day smoker tobacco type: cigarettes alcohol intake: current alcohol intake frequency: holidays/special occasions only substance use type: does not use ROS ROS ED Constitutional Constitutional ED: Denies chills, fever(s) or subjective Eyes Eyes: Denies blurry vision, change in vision or diplopia ENT ENT ED: Denies ear pain, rhinorrhea or sore throat Cardiovascular Cardiovascular: Denies chest pain, orthopnea, palpitations, paroxysmal nocturnal dyspnea or racing heartbeat Respiratory/Chest Respiratory/Chest: Denies dyspnea, dyspnea on exertion, orthopnea or paroxysmal nocturnal dyspnea Gastrointestinal Gastrointestinal: Denies abdominal pain, diarrhea, nausea or vomiting Genitourinary Genitourinary ED: Denies dysuria, hematuria or urinary frequency Musculoskeletal Musculoskeletal: Reports back pain and other Details: Right ankle ; Denies arthralgias, myalgias or neck pain Integumentary Denies abscess, Abrasions or rash Psychiatric Psychiatric: Reports anxiety and depression Hematologic/Lymphatic Hematologic/Lymphatic: Denies easy bleeding or easy bruising EXAM Physical Exam Const Vital Signs: 03/22/21 17:09 03/22/21 17:34 Temperature 98 F Temperature Source Temporal Pulse Rate 103 H Respiratory Rate 18 Respiratory Effort Normal Non-Labored Respiratory Depth Normal Respiratory Pattern Normal Blood Pressure 138/81 H Blood Pressure Mean 100 Pulse Ox 98 Oxygen Delivery Method Room Air Room Air Positive well nourished and well developed General Appearance ED: well developed and NAD HEENT Reports normocephalic and TM's clear HEENT Narrative: There are no clinical findings of basal skull fracture. There is no septal deviation hematoma. atraumatic; Negative for hematoma Tympanic Membrane ED: Yes TM's clear Eyes PERRL and EOMs intact bilaterally General Eye ED: Negative for pale conjunctiva or scleral icterus Neck full ROM, no lymphadenopathy and supple General: Negative for tenderness Chest Wall inspection of chest normal and palpation of chest normal Resp normal respiratory effort, no retractions and clear to auscultation bilaterally Cardio regular rhythm, S1 normal heart sound, S2 normal heart sound and no murmurs Rate: tachycardic GI non-tender, non-distended and no masses Auscultation: normoactive bowel sounds Palpation: soft Back/Spine no CVA tenderness Thoracic Spine / Upper Back: Negative for thoracic spinal tenderness Lumbar Spine / Lower Back: paraspinal muscle tenderness; Negative for lumbar spinal tenderness Extremity no joint enlargement, no clubbing, cyanosis or edema, no calf tenderness and no pedal edema; Negative for full ROM Extremity Narrative: Patient has pain to palpation posterior right ankle and over the calcaneus. There is no bruising noted. There is no obvious swelling noted. General Extremety ED: Yes normal exam except as noted General Extremity: normal exam except as noted Neuro oriented x3, CN's II-XII intact bilaterally and no sensory deficits noted [place] Coma Scale: document GCS findings Spontaneous Obeys Commands Oriented 15 Sensorium / Orientation: alert Motor Exam: strength 5/5 throughout Psych mental status grossly normal and thought process normal Skin Lesions: no lesions Rashes: no rashes and rashes noted MDM MDM MDM Narrative Medical decision making narrative: X-ray was obtained to rule out fracture versus sprain. Since patient drove herself to the emergency department she received Naprosyn. The problem list is incorrect. Patient is not . Radiography Diagnostic Testing: Three-view x-ray of the right ankle was interpreted by me at 1747 is negative. There is no fracture, subluxation or dislocation. Is no asymmetry of the joint spaces. Discharge Plan Triage Chief Complaint: Fall ED Provider: Cleveland Romero Dx/Rx/DC Orders Clinical Impression: Fall from tree, initial encounter, Mild sprain of right ankle, Muscle strain of right upper back Prescriptions: New naproxen 500 MG tablet 500 mg PO BID Qty: 14 RF: 0 No Action clindamycin HCl 300 mg capsule 300 mg PO TID RF: 0 tobramycin 0.3 % drops 1 drp EACH EYE 4X/DAY RF: 0 Primary Care Provider: Sandie Bui NP Referrals: Sandie Bui NP, FOLEY ARTIST-C [Primary Care Provider] - 1 Week if not improving Activity Restrictions/Additional Instructions: 1. Apply ice 8 times a day 2. Wear flat shoes and walk on flat surfaces. 3. You may hurt for an additional 1 to 3 weeks. Disposition Disposition: Home, Self Care
[2021-03-22] MEDS: Naproxen 500 MG Tablet PO (17:34)
--- NOTE | 2021-03-22 17:36 | RAD_ITS ---
STUDY: X-RAY - RIGHT ANKLE REASON FOR EXAM: Female, 25 years old. Injury/Pain TECHNIQUE: 3 view(s) of the ankle. COMPARISON: None. FINDINGS: Normal visualized distal tibia and fibula. Normal medial and lateral malleoli. Normal tibiotalar articulation and ankle mortise. Normal visualized talus and calcaneus. The visualized subtalar, talonavicular, calcaneocuboid and tarsal articulations are normal. The soft tissue structures are unremarkable. RAD/Ankle min 3 Views IMPRESSION: Normal x-ray examination of the ankle. Electronically Signed: Eric Page MD at 17:52 EDT Tel , Service support ,
== END 2021-03-22 18:18 | disposition home or self-care (01) ==
PROVIDERS: Emergency Provider Emergency Medicine; PCP Nurse Practitioner Family
DX: S93.401A Sprain of unspecified ligament of right ankle, initial encounter (principal); S29.012A Strain of muscle and tendon of back wall of thorax, initial encounter; F17.210 Nicotine dependence, cigarettes, uncomplicated; W14.XXXA Fall from tree, initial encounter; Y93.89 Activity, other specified; Y92.89 Other specified places as the place of occurrence of the external cause; Y99.8 Other external cause status
CPT/HCPCS: 73610; 99282

== ENCOUNTER 2022-05-11 18:54 | Observation (INO) | payer MEDICAID, SELFPAY ==
[2022-05-11 18:55] VITALS: BP 105/71; PULSE 96; RESP 16; TEMP 36.1; O2SAT 98; BMI 26.6
--- NOTE | 2022-05-11 19:09 | CT_ITS ---
STUDY: CT ABDOMEN AND PELVIS WITHOUT CONTRAST REASON FOR EXAM: Female, 26 years old. R flank pain RADIATION DOSAGE (If Supplied By Facility): CTDIvol = ( 9.86 ) mGy, DLP = ( 556.79 ) mGycm TECHNIQUE: Transaxial images were obtained from the dome of the diaphragm to the symphysis pubis without oral contrast, and without intravenous contrast. Sagittal and coronal images were reconstructed. Individualized dose optimization techniques were used for this CT. COMPARISON: April 01, 2020 FINDINGS: There are mild lower lung interstitial increased opacities. The visualized portions of the heart are within normal limits. Normal liver. Normal gallbladder and extrahepatic biliary system. There is mild splenomegaly. Normal pancreas. Normal bilateral adrenal glands. There is perinephric stranding of the right kidney. Normal left kidney. Normal visualized stomach. Normal small intestine. Normal colon. The appendix is visualized and appears normal. Normal abdominal aorta. Normal inferior vena cava. Normal retroperitoneum. Normal urinary bladder. Normal visualized uterus. There is no free fluid in the abdomen or pelvis. Normal abdominal wall. Normal osseous structures. CT/Abdomen/Pelvis without Cont IMPRESSION: Perinephric stranding of the right kidney with inflammatory process such as pyelonephritis or recently passed stone. No stones are seen. Hepatosplenomegaly. No biliary dilatation. Electronically Signed: Peter Gordon MD at 21:00 EDT ,
[2022-05-11] MEDS: Morphine 4 MG/ML Syringe IV (19:19)
[2022-05-11] MEDS: Ondansetron 4 MG/2 ML Vial IV (19:20)
[2022-05-11] MEDS: 0.9% Normal Saline 1,000 ML 1000 ML IV (19:20)
[2022-05-11 19:34] LABS: Mucous, Urine 0 SEEN /hpf (<or=2+)
[2022-05-11 19:42] LABS: Absolute Lymphocyte Count 1.95 X10^3/uL (0.83-4.51); Absolute Neutrophil Count 14.6 X10^3/uL (2.0-7.7); Basophil# 0.04 X10^3/uL; Basophil% 0.2 % (0-1); Eosinophil# 0.09 X10^3/uL; Eosinophils% 0.5 % (0-5); Hematocrit 38.2 % (37-47); Hemoglobin 12.8 g/dL (12.0-15.0); Lymphocyte # 1.95 X10^3/ul (0.83-4.51); Lymphocyte % 10.5 % (19-41); Mean Corp Hgb Conc 33.5 g/dL (32-36); Mean Corpuscular Hgb 29.1 pg (27.0-32.0); Mean Corpuscular Volume 86.8 fL (81-99); Mean Platelet Vol. 11.7 fl (6.2-12.0); Monocyte# 1.79 X10^3/uL; Monocyte% 9.7 % (0-10); NRBC Flagged by Analyzer 0 % (0-5); Neutrophil # 14.55 X10^3/uL (2.7-7.7); Neutrophil % 78.6 % (47-70); POSITIVE DIFFERENTIAL YES; Platelet Count 232 K/mm3 (150-450); RBC Distribution Width CV 13.1 % (11.6-14.6); RBC Distribution Width SD 41.4 fl (35.1-43.9); White Blood Count 18.5 K/mm3 (4.4-11.0)
[2022-05-11 19:43] LABS: Color, Urine Straw (Yellow); Glucose, Dipstick Normal (Normal); Ketone-Dipstick 5 mg/dl (Negative); Leukocyte Esterase-Dipstick 500 /ul (Negative); Nitrite-Dipstick Negative (Negative); Occult Blood-Urine 250 /ul (Negative); Protein-Dipstick 30 mg/dl (Negative); Specific Gravity, Urine 1.005 (1.002-1.030); Urine Bilirubin Dipstick Negative (Negative); Urine Clarity Clear (Clear); Urine Urobilinogen Normal (Normal); Urine pH 6.5 (5.0 - 8.0)
[2022-05-11 19:44] LABS: Differential Indicated SCAN CRITERIA MET
[2022-05-11 19:51] LABS: White Blood Cells 25-50 SEEN /hpf (0-5)
[2022-05-11 19:52] LABS: Bacteria 1+ /hpf (None Seen); Red Blood Cells-Urine 50-100 SEEN /hpf (0-5); Squamous Epithelial Cells - UA 0-5 SEEN /hpf (5-10)
[2022-05-11 19:53] LABS: Internal QC Validated? YES +Cl - CLEAR BKGD; Pregnancy, Serum, hCG Quali. NEGATIVE Negative
[2022-05-11 19:59] LABS: ALB/GLOB Ratio 0.8 RATIO (0.9-2.4); AST(SGOT) 10 U/L (15-37); Alanine Aminotransfer ALT/SGPT 20 U/L (13-56); Albumin, Serum 3.4 g/dL (3.2-5.0); Alkaline Phosphatase 79 U/L (45-117); Anion Gap 7 (5-15); BUN 7 mg/dL (7-18); BUN/Creat Ratio 6.6 RATIO (10-20); Calcium,Total 9.5 mg/dL (8.5-10.1); Chloride 102 mmol/L (98-107); Creatinine, Serum 1.06 mg/dL (0.55-1.02); EST Glomerular Filtration Rate 65 mL/min (>60); Est Glom Filt Rate - Afr Amer 79 mL/min (>60); Estimated Creatinine Clearance 85.45 ml/min; Globulin 4.4 g/dL (2.2-4.2); Glucose 101 mg/dL (74-106); Lipase 34 U/L (73-393); Potassium 3.2 mmol/L (3.5-5.1); Protein, Total 7.8 g/dL (6.4-8.2); Sodium Level 135 mmol/L (136-145)
[2022-05-11 20:09] LABS: Platelet Estimate ADEQUATE (ADEQ); Red Cell Morphology NORM C+C NORMAL (NORM C&C)
[2022-05-11 21:09] VITALS: PULSE 84; RESP 16; O2SAT 100
--- NOTE | 2022-05-11 21:37 | EDS_ITS ---
HPI History of Present Illness Chief Complaint: Abd Pain Informant: patient Onset/Context/Timing Onset: Days (3) Location: R flank and inguinal region Maximum Severity: Severe Narrative Narrative: Patient has had right flank pain that radiates into her right groin. This build gradually over the last 3 days. She never had this before. No history of kidney stones. No blood in her urine that she appreciated. No urinary symptoms. No fever. No [employer] symptoms. PFSH [facility] Medical History IBS (irritable bowel syndrome) Home Medications clindamycin HCl 300 mg capsule 300 mg PO TID 03/22/21 [History Last Taken Unknown] naproxen 500 mg tablet 500 mg PO BID #14 tabs 03/22/21 [Rx Last Taken Unknown] tobramycin 0.3 % eye drops 1 drp EACH EYE 4X/DAY 03/22/21 [History Last Taken Unknown] Allergy/AdvReac Type Severity Reaction Status Date / Time nickel Allergy Rash Verified 05/11/22 18:54 aspirin AdvReac Upset Verified 05/11/22 18:54 Stomach iodine AdvReac Itching Verified 05/11/22 18:54 lactose AdvReac Upset Verified 05/11/22 18:54 Stomach Surgical History H/O tubal ligation Social History household members: spouse and children Smoking Status: Current every day smoker tobacco type: cigarettes alcohol intake: current alcohol intake frequency: holidays/special occasions only substance use type: does not use ROS ROS ED Constitutional Constitutional ED: Denies chills or fever(s) Eyes Eyes: Denies blurry vision ENT ENT ED: Denies ear pain Cardiovascular Cardiovascular: Denies chest pain Respiratory/Chest Respiratory/Chest: Denies cough Gastrointestinal Gastrointestinal: Reports abdominal pain Genitourinary Genitourinary ED: Denies dysuria, hematuria or urinary frequency Musculoskeletal Musculoskeletal: Reports back pain; Denies arthralgias, myalgias or neck pain Integumentary Denies abscess Neurologic Neurologic: Denies headache(s) Psychiatric Psychiatric: Denies anxiety Endocrine Endocrinology: Denies cold intolerance Allergic/Immunologic Allergic/Immunologic ED: Denies mouth swelling EXAM Physical Exam Const Vital Signs: 05/11/22 18:55 05/11/22 21:09 Temperature 97.0 F L Temperature Source Temporal Pulse Rate 96 84 Respiratory Rate 16 16 Blood Pressure 105/71 Blood Pressure Mean 82 Pulse Ox 98 100 Oxygen Delivery Method Room Air Room Air Positive well nourished and well developed General Appearance ED: well developed HEENT Reports moist mucous membranes Eyes PERRL and EOMs intact bilaterally Resp normal respiratory effort Cardio regular rate GI GI Narrative: Right CVA tenderness and right flank tenderness Extremity normal to inspection Neuro oriented x3 Psych mental status grossly normal Skin no rashes or lesions noted MDM MDM MDM Narrative Medical decision making narrative: Patient was treated with fluids, pain medicine, nausea medicine while awaiting results. CT showed right-sided pyelonephritis or recently passed stone with hepatosplenomegaly. The or red cells and white cells in her urine, but again no evidence of stone on the scan. Her white count was 18.5. Heart rate, respiratory rate, and temperature normal. Potassium 3.2, the hospitalist will replace. She had a urine culture and was treated with Rocephin. Patient admitted for further care. Impression #1 right pyelonephritis Impression #2 hypokalemia Impression #3 leukocytosis Impression #4 hematuria Lab Data Attestation: I reviewed the patient's lab results. Labs: Laboratory Results - last 24 hr 05/11/22 05/11/22 05/11/22 19:27 19:27 19:27 WBC 18.5 H RBC 4.40 Hgb 12.8 Hct 38.2 MCV 86.8 MCH 29.1 MCHC 33.5 RDW Std Deviation 41.4 RDW Coeff of Radha 13.1 Plt Count 232 MPV 11.7 Immature Gran % (Auto) 0.500 Neut % (Auto) 78.6 H Lymph % (Auto) 10.5 L [place] % (Auto) 9.7 Eos % (Auto) 0.5 Baso % (Auto) 0.2 Absolute Neuts (auto) 14.6 H Absolute Lymphs (auto) 1.95 Nucleated RBC % 0 Differential Comment Diff Path Review May foll Platelet Estimate ADEQUATE RBC Morphology NORM C+C Sodium 135 L Potassium 3.2 L Chloride 102 Carbon Dioxide 26.0 Anion Gap 7 BUN 7 Creatinine 1.06 H Estim Creat Clear Calc 85.45 Est GFR (MDRD) Af Amer 79 Est GFR (MDRD) Non-Af 65 BUN/Creatinine Ratio 6.6 L Glucose 101 Calcium 9.5 Total Bilirubin 0.60 AST 10 L ALT 20 Alkaline Phosphatase 79 Total Protein 7.8 Albumin 3.4 Globulin 4.4 H Albumin/Globulin Ratio 0.8 L Lipase 34 L Serum , Qual NEGATIVE Urine Color Urine Clarity Urine pH Ur Specific [place] Urine Protein Urine Glucose (UA) Urine Ketones Urine Occult Blood Urine Nitrite Urine Bilirubin Urine Urobilinogen Ur Leukocyte Esterase Urine RBC Urine WBC Ur Squamous Epith Cells Urine Bacteria Urine Mucus 05/11/22 19:27 WBC RBC Hgb Hct MCV MCH MCHC RDW Std Deviation RDW Coeff of Radha Plt Count MPV Immature Gran % (Auto) Neut % (Auto) Lymph % (Auto) [place] % (Auto) Eos % (Auto) Baso % (Auto) Absolute Neuts (auto) Absolute Lymphs (auto) Nucleated RBC % Differential Comment Diff Path Review Platelet Estimate RBC Morphology Sodium Potassium Chloride Carbon Dioxide Anion Gap BUN Creatinine Estim Creat Clear Calc Est GFR (MDRD) Af Amer Est GFR (MDRD) Non-Af BUN/Creatinine Ratio Glucose Calcium Total Bilirubin AST ALT Alkaline Phosphatase Total Protein Albumin Globulin Albumin/Globulin Ratio Lipase Serum , Qual Urine Color Straw Urine Clarity Clear Urine pH 6.5 Ur Specific [place] 1.005 Urine Protein 30 H Urine Glucose (UA) Normal Urine Ketones 5 H Urine Occult Blood 250 H Urine Nitrite Negative Urine Bilirubin Negative Urine Urobilinogen Normal Ur Leukocyte Esterase 500 H Urine RBC 50-100 SEEN Urine WBC 25-50 SEEN Ur Squamous Epith Cells 0-5 SEEN Urine Bacteria 1+ Urine Mucus 0 SEEN Radiography Diagnostic Testing: Clinical Impression(s) from Imaging Studies Abdomen/Pelvis CT 05/11/22 19:09 IMPRESSION: Perinephric stranding of the right kidney with inflammatory process such as pyelonephritis or recently passed stone. No stones are seen. Hepatosplenomegaly. No biliary dilatation. Electronically Signed: Peter Gordon MD at 21:00 EDT , Discharge Plan Triage Chief Complaint: Abd Pain ED Provider: Jose Maria Rosa Dx/Rx/DC Orders Prescriptions: No Action clindamycin HCl 300 mg capsule 300 mg PO TID Label Comments: TAKE 1 CAPSULE BY MOUTH EVERY 8 HOURS FOR 7 DAYS tobramycin 0.3 % drops 1 drp EACH EYE 4X/DAY Label Comments: INSTILL 1 DROP INTO EACH EYE 4 TIMES DAILY FOR 7 DAYS naproxen 500 MG tablet 500 mg PO BID Qty: 14 0RF Primary Care Provider: Sandie Bui NP Referrals: Sandie Bui NP, AGRICULTURE RESEARCH DIRECTOR-C [Primary Care Provider] -
--- NOTE | 2022-05-11 21:43 | HP.PCM.HOS_ITS ---
HPI - General General Date of Admission: 05/11/22 Date of Service: 05/11/22 Chief Complaint: Right flank pain HPI Narrative NATASHA RUELAS, is a 26 F with a significant history of irritable bowel syndrome who presents to the emergency department with 3-day history of progressively worsening right flank pain that radiates to her right groin. She describes her pain as sharp. Intensity of the pain is 6 out of 10. Walking makes the pain worse; and sitting and resting makes the pain better. Associated with her symptoms is nausea and vomiting. [facility] Medical History ADD (attention deficit disorder) Chronic back pain Chronic migraine Fibromyalgia IBS (irritable bowel syndrome) Home Medications tobramycin 0.3 % eye drops 1 drp EACH EYE 4X/DAY PRN Eye Irritation 03/22/21 [History Last Taken Unknown] dextroamphetamine-amphetamine 10 mg tablet (Adderall) 10 mg PO DAILY ADD 05/11/22 [History Last Taken 05/11/22] duloxetine 30 mg capsule,delayed release 30 mg PO QHS depression 05/11/22 [History Last Taken 05/10/22] etodolac 200 mg capsule 200 mg PO QHS anti inflammatory 05/11/22 [History Last Taken 05/10/22] pregabalin 100 mg capsule 100 mg PO QHS fibromyalgia 05/11/22 [History Last Taken 05/10/22] tizanidine 4 mg capsule 4 mg PO Q8H PRN muscle spasms 05/11/22 [History Last Taken 05/11/22] trazodone 50 mg tablet 50 mg PO QHS sleep 05/11/22 [History Last Taken 05/10/22] Allergy/AdvReac Type Severity Reaction Status Date / Time nickel Allergy Rash Verified 05/11/22 18:54 aspirin AdvReac Upset Verified 05/11/22 18:54 Stomach iodine AdvReac Itching Verified 05/11/22 18:54 lactose AdvReac Upset Verified 05/11/22 18:54 Stomach Family History Other Cancer Surgical History H/O dilation and curettage H/O tooth extraction H/O tubal ligation Social History household members: spouse and children Smoking Status: Current every day smoker tobacco type: e-cigarettes alcohol intake: current alcohol intake frequency: holidays/special occasions only substance use type: does not use ROS ROS Narrative Pertinent positives and pertinent negatives as noted in HPI. All other systems were reviewed and are negative Vital Signs Vital Signs Vital Signs: 05/11/22 18:55 05/11/22 21:09 Temperature 97.0 F L Temperature Source Temporal Pulse Rate 96 84 Respiratory Rate 16 16 Blood Pressure 105/71 Blood Pressure Mean 82 Pulse Ox 98 100 Oxygen Delivery Method Room Air Room Air Weight Weight: 84.368 kg Body Mass Index (BMI) 26.6 Physical Exam Narrative Physical exam: General: Well-nourished, well-developed. Head: Normocephalic, atraumatic, no tenderness Eyes: Vision is grossly intact. EOMI ENT: Edentulous; moist mucous membranes, no rhinorrhea Neck: Nontender, full range of motion, no spinal tenderness, deformities, step- off CVS: Regular rate and rhythm. S1-S2 present. No murmur, gallop or rub. Respiratory : clear to auscultation bilaterally, chest wall nontender, no wheezing Abdomen: Soft, nontender, nondistended, normal bowel sounds, no masses : Deferred Back: Nontender, right CVA tenderness, no midline spinal tenderness, deformities, step-offs Extremities: Nontender full range of motion, no trauma Skin: Normal color, no trauma, abrasions Neuro: Alert, oriented, cranial nerves II through XII grossly intact. Psychiatry: Normal mood. Normal affect. Not depressed. Not anxious. Results Lab / Micro Data Result Diagrams: 05/11/22 19:27 05/11/22 19:27 Labs: Laboratory Results - last 24 hr 05/11/22 19:27: WBC 18.5 H, RBC 4.40, Hgb 12.8, Hct 38.2, MCV 86.8, MCH 29.1, MCHC 33.5, RDW Std Deviation 41.4, RDW Coeff of Radha 13.1, Plt Count 232, MPV 11.7, Immature Gran % (Auto) 0.500, Neut % (Auto) 78.6 H, Lymph % (Auto) 10.5 L, [place] % (Auto) 9.7, Eos % (Auto) 0.5, Baso % (Auto) 0.2, Absolute Neuts (auto) 14.6 H, Absolute Lymphs (auto) 1.95, Nucleated RBC % 0, Differential Comment , Diff Path Review May foll, Platelet Estimate ADEQUATE, RBC Morphology NORM C+C 05/11/22 19:27: Sodium 135 L, Potassium 3.2 L, Chloride 102, Carbon Dioxide 26.0, Anion Gap 7, BUN 7, Creatinine 1.06 H, Estim Creat Clear Calc 85.45, Est GFR (MDRD) Af Amer 79, Est GFR (MDRD) Non-Af 65, BUN/Creatinine Ratio 6.6 L, Glucose 101, Calcium 9.5, Total Bilirubin 0.60, AST 10 L, ALT 20, Alkaline Phosphatase 79, Total Protein 7.8, Albumin 3.4, Globulin 4.4 H, Albumin/Globulin Ratio 0.8 L, Lipase 34 L 05/11/22 19:27: Serum , Qual NEGATIVE 05/11/22 19:27: Urine Color Straw, Urine Clarity Clear, Urine pH 6.5, Ur Specific [place] 1.005, Urine Protein 30 H, Urine Glucose (UA) Normal, Urine Ketones 5 H, Urine Occult Blood 250 H, Urine Nitrite Negative, Urine Bilirubin Negative, Urine Urobilinogen Normal, Ur Leukocyte Esterase 500 H, Urine RBC 50- 100 SEEN, Urine WBC 25-50 SEEN, Ur Squamous Epith Cells 0-5 SEEN, Urine Bacteria 1+, Urine Mucus 0 SEEN Radiology Impression Abdomen/Pelvis CT 05/11/22 19:09 IMPRESSION: Perinephric stranding of the right kidney with inflammatory process such as pyelonephritis or recently passed stone. No stones are seen. Hepatosplenomegaly. No biliary dilatation. Electronically Signed: Peter Gordon MD at 21:00 EDT , Assessment & Plan Assessment/Plan (1) Pyelonephritis: (2) Hypokalemia: PLAN: Plan Acute pyonephritis Review of labs showed white count of 18,500 with neutrophilia and lymphopenia. Trend CBC Urinalysis reviewed showed negative nitrite; leukocyte esterase of 500; urine WBC 25-30; urine squamous epithelial cells 0-5; urine bacteria 1+Urine culture was ordered at the emergency department, follow. Abdomen and pelvis CT was visualized and independently interpreted. I agree wi th radiologist interpretation of perinephric stranding of the right kidney with inflammatory process. No stone was seen. Ceftriaxone started emergency department and continued. As needed IV Zofran and as needed IV morphine ordered for supportive treatment. Acute hypokalemia Potassium of 3.2 on presentation. Likely secondary to nausea and vomiting. Normal saline with IV potassium ordered. Bump in creatinine Creatinine on presentation was 1.06. Review of record shows that creatinine on 12/09/2021 was 0.82. Old records reviewed shows slight rise in creatinine but still within baseline. Gentle IV hydration. Trend BMP. DVT prophylaxis: Subcutaneous Lovenox ordered. Charges/Coding Visit Charges Inpatient E&M: 24164 Init Hosp L3
[2022-05-11] MEDS: Ceftriaxone 1 GM/50 ML BAG IV (21:45)
[2022-05-11 21:46] VITALS: BP 115/52; PULSE 90; RESP 16; TEMP 36.7; O2SAT 99
[2022-05-11 22:21] VITALS: BMI 27.4
[2022-05-11 22:36] VITALS: BP 103/58; PULSE 88; RESP 16; TEMP 37.8; O2SAT 99
[2022-05-12] MEDS: traZODone 50 MG Tablet PO ×2 (00:23→21:33)
[2022-05-12] MEDS: 0.9% Saline Lock 10 ML Syringe IV (00:24)
[2022-05-12] MEDS: Potassium Chloride 40 MEQ in 0.9% Normal Saline 1,000 ML 100 MEQ IV ×3 (00:24→21:28)
[2022-05-12] MEDS: Etodolac 200 MG Capsule PO ×2 (00:24→21:32)
[2022-05-12] MEDS: DULoxetine Hcl 30 MG Capsule PO ×2 (00:24→21:33)
[2022-05-12 05:24] VITALS: BP 109/48; PULSE 71; RESP 16; TEMP 37.6; O2SAT 98
[2022-05-12 05:31] LABS: Absolute Lymphocyte Count 1.65 X10^3/uL (0.83-4.51); Absolute Neutrophil Count 9.3 X10^3/uL (2.0-7.7); Basophil# 0.02 X10^3/uL; Basophil% 0.2 % (0-1); Eosinophil# 0.01 X10^3/uL; Eosinophils% 0.1 % (0-5); Hematocrit 36.2 % (37-47); Hemoglobin 11.9 g/dL (12.0-15.0); Lymphocyte # 1.65 X10^3/ul (0.83-4.51); Lymphocyte % 13.4 % (19-41); Mean Corp Hgb Conc 32.9 g/dL (32-36); Mean Corpuscular Hgb 28.7 pg (27.0-32.0); Mean Corpuscular Volume 87.2 fL (81-99); Mean Platelet Vol. 12.1 fl (6.2-12.0); Monocyte# 1.31 X10^3/uL; Monocyte% 10.6 % (0-10); NRBC Flagged by Analyzer 0 % (0-5); Neutrophil # 9.25 X10^3/uL (2.7-7.7); Neutrophil % 75.1 % (47-70); Platelet Count 212 K/mm3 (150-450); RBC Distribution Width CV 13.3 % (11.6-14.6); RBC Distribution Width SD 42.5 fl (35.1-43.9); Red Blood Count 4.15 M/mm3 (4.2-5.4); White Blood Count 12.3 K/mm3 (4.4-11.0)
[2022-05-12 06:05] LABS: Anion Gap 9 (5-15); BUN 6 mg/dL (7-18); BUN/Creat Ratio 6.8 RATIO (10-20); Calcium,Total 8.5 mg/dL (8.5-10.1); Chloride 105 mmol/L (98-107); Creatinine, Serum 0.88 mg/dL (0.55-1.02); EST Glomerular Filtration Rate 81 mL/min (>60); Est Glom Filt Rate - Afr Amer 98 mL/min (>60); Estimated Creatinine Clearance 102.92 ml/min; Glucose 103 mg/dL (74-106); Potassium 3.5 mmol/L (3.5-5.1); Sodium Level 137 mmol/L (136-145)
--- NOTE | 2022-05-12 07:55 | PCM.PN.HOSP ---
Subjective Subjective Patient is a 26-year-old lady who presented with right lower quadrant abdominal pain with associated nausea and vomiting of 3 days duration. An assessment of acute pyelonephritis made admitted to regular nursing floor for further management Objective Data Objective Data Vital Signs: Vital Signs Temp Pulse Resp BP Pulse Ox O2 Del Method 99.7 F H 71 16 109/48 L 98 Room Air 05/12/22 05:24 05/12/22 05:24 05/12/22 05:24 05/12/22 05:24 05/12/22 05:24 05/12/22 05:24 Oxygen Delivery Method Room Air Weight: 86.7 kg Body Mass Index (BMI) 27.4 Intake & Output: Intake and Output for Last 24 Hours 05/10/22 05/11/22 05/12/22 23:59 23:59 23:59 Intake Total 1000 / 1000 650 / 650 Balance 1000 / 1000 650 / 650 Lab / Micro Data Result Diagrams: 05/12/22 05:10 05/12/22 05:10 Labs: Laboratory Results - last 24 hr 05/11/22 19:27: WBC 18.5 H, RBC 4.40, Hgb 12.8, Hct 38.2, MCV 86.8, MCH 29.1, MCHC 33.5, RDW Std Deviation 41.4, RDW Coeff of Radha 13.1, Plt Count 232, MPV 11.7, Immature Gran % (Auto) 0.500, Neut % (Auto) 78.6 H, Lymph % (Auto) 10.5 L, [place] % (Auto) 9.7, Eos % (Auto) 0.5, Baso % (Auto) 0.2, Absolute Neuts (auto) 14.6 H, Absolute Lymphs (auto) 1.95, Nucleated RBC % 0, Differential Comment , Diff Path Review May foll, Platelet Estimate ADEQUATE, RBC Morphology NORM C+C 05/11/22 19:27: Sodium 135 L, Potassium 3.2 L, Chloride 102, Carbon Dioxide 26.0, Anion Gap 7, BUN 7, Creatinine 1.06 H, Estim Creat Clear Calc 85.45, Est GFR (MDRD) Af Amer 79, Est GFR (MDRD) Non-Af 65, BUN/Creatinine Ratio 6.6 L, Glucose 101, Calcium 9.5, Total Bilirubin 0.60, AST 10 L, ALT 20, Alkaline Phosphatase 79, Total Protein 7.8, Albumin 3.4, Globulin 4.4 H, Albumin/Globulin Ratio 0.8 L, Lipase 34 L 05/11/22 19:27: Serum , Qual NEGATIVE 05/11/22 19:27: Urine Color Straw, Urine Clarity Clear, Urine pH 6.5, Ur Specific [place] 1.005, Urine Protein 30 H, Urine Glucose (UA) Normal, Urine Ketones 5 H, Urine Occult Blood 250 H, Urine Nitrite Negative, Urine Bilirubin Negative, Urine Urobilinogen Normal, Ur Leukocyte Esterase 500 H, Urine RBC 50-100 SEEN, Urine WBC 25-50 SEEN, Ur Squamous Epith Cells 0-5 SEEN, Urine Bacteria 1+, Urine Mucus 0 SEEN 05/12/22 05:10: WBC 12.3 H, RBC 4.15 L, Hgb 11.9 L, Hct 36.2 L, MCV 87.2, MCH 28.7, MCHC 32.9, RDW Std Deviation 42.5, RDW Coeff of Radha 13.3, Plt Count 212, MPV 12.1 H, Immature Gran % (Auto) 0.600, Neut % (Auto) 75.1 H, Lymph % (Auto) 13.4 L, [place] % (Auto) 10.6 H, Eos % (Auto) 0.1, Baso % (Auto) 0.2, Absolute Neuts (auto) 9.3 H, Absolute Lymphs (auto) 1.65, Nucleated RBC % 0 05/12/22 05:10: Sodium 137, Potassium 3.5, Chloride 105, Carbon Dioxide 23.0, Anion Gap 9, BUN 6 L, Creatinine 0.88, Estim Creat Clear Calc 102.92, Est GFR (MDRD) Af Amer 98, Est GFR (MDRD) Non-Af 81, BUN/Creatinine Ratio 6.8 L, Glucose 103, Calcium 8.5 Radiography Diagnostic Testing: Radiology Impression Abdomen/Pelvis CT 05/11/22 19:09 IMPRESSION: Perinephric stranding of the right kidney with inflammatory process such as pyelonephritis or recently passed stone. No stones are seen. Hepatosplenomegaly. No biliary dilatation. Electronically Signed: Peter Gordon MD at 21:00 EDT , Physical Exam Narrative GENERAL: cooperative HEENT: Atraumatic; normocephalic EYES; Anicteric, Normal Conjunctiva NECK; supple, normal thyroid, RESPIRATORY: Diminished to auscultation CARDIOVASCULAR: Regular S1 S2, GI: soft, normoactive bowel sounds, : No Renal angle tenderness; EXTREMITIES: No edema, no clubbing, MUSCULOSKELETAL: no muscle wasting NEURO: Awake; no lateralizing signs. SKIN: No Rash PSYCH; Flat affect Assessment & Plan Assessment/Plan (1) Pyelonephritis: (2) Hypokalemia: PLAN: Plan Patient is a 26-year-old lady who presented with right lower quadrant abdominal pain with associated nausea and vomiting of 3 days duration. An assessment of acute pyelonephritis made admitted to regular nursing floor for further management 1. Acute pyelonephritis ? Patient admitted to regular nursing floor started on Rocephin cultures times with plans to adjust antibiotic therapy based on culture result 2. Hypokalemia ? Corrected per protocol repeat labs ordered 3. Depression ? Patient is on duloxetine 4. ADHD ? Patient is on Adderall 5. DVT prophylaxis ? Lovenox Charges/Coding Visit Charges Inpatient E&M: 17843 Subs Hosp L2
[2022-05-12 09:00] VITALS: BP 147/117; PULSE 95; RESP 14; TEMP 37.7; O2SAT 99
[2022-05-12] MEDS: Ondansetron 4 MG/2 ML Vial IV (09:25)
[2022-05-12] MEDS: Acetaminophen 325 MG Tablet 650 MG PO ×2 (09:25→15:37)
[2022-05-12 09:31] LABS: Pathologist Review Reviewed
[2022-05-12] MEDS: Enoxaparin 40 MG/0.4 ML Syringe SC (09:32)
[2022-05-12 14:16] VITALS: BP 91/63; PULSE 87; RESP 14; TEMP 37.3; O2SAT 100
--- NOTE | 2022-05-12 15:17 | CASEMGMT ---
JASWANT SHELDON Assessment: Face to Face with pt for initial transition planning/care coordination assessment. RN PITO introduced self and role at [facility], pt voices understanding and consents to assessment. Pt is A/O x4 and answers all questions appropriately at this time. Pt lying in bed in no distress. Care providers, pharmacy, and demographics verified/updated. Admitting Dx: acute pyelonephritis PCP:Sandie Bui NP Specialists:Pt denies. Preferred [facility]acy: [facility] Insurance: [employer] Prescription Benefit: yes LW/HPOA: Pt states she has a LW and she will have it once her brings in her laptop. She is aware it is not on file at [facility] and she may give to staff to be scanned into her chart. LNOK: Hank Hines, ; Su Rodriguez, mother Living Arrangements: Pt lives with and 2 children in a two story house with 2 steps to enter. Pt reports she is I in ADL's and denies concerns at home. Transportation: Pt drives self and denies concerns with transportation. DME/HHC/SNF: Pt denies having any DME in the home, previous HHC or SNF stays. Pt states no concerns with going home at time of dc. Pt states no further concerns/needs. CM to follow. Advised pt to ask CM if any further question/concerns/needs arise, voices understanding. Pt Goal: Home Plan: Home
[2022-05-12 15:33] VITALS: BP 102/60; PULSE 85; RESP 20; TEMP 38.8; O2SAT 98
--- NOTE | 2022-05-12 16:10 | CASEMGMT ---
Pt states she does have a living will and is aware she does not have a copy on file at [facility]. Pt does not have a HCPOA. SIDDHARTH Lock
[2022-05-12] MEDS: tiZANidine HCl 2 MG Tablet 4 MG PO (18:29)
[2022-05-12 18:30] VITALS: BP 102/50; PULSE 69; RESP 14; TEMP 37.7; O2SAT 99
[2022-05-12] MEDS: Pregabalin 50 MG Capsule 100 MG PO (21:32)
[2022-05-12 21:35] VITALS: BP 102/67; PULSE 68; RESP 16; TEMP 37.2; O2SAT 99
[2022-05-13 01:06] VITALS: BP 102/67; PULSE 68; RESP 16; TEMP 37.2; O2SAT 99
[2022-05-13 05:00] VITALS: BP 98/52; PULSE 64; RESP 16; TEMP 36.9; O2SAT 100
[2022-05-13 05:40] LABS: Absolute Lymphocyte Count 1.36 X10^3/uL (0.83-4.51); Basophil# 0.01 X10^3/uL; Basophil% 0.1 % (0-1); Eosinophil# 0.02 X10^3/uL; Eosinophils% 0.3 % (0-5); Hematocrit 32.6 % (37-47); Hemoglobin 10.5 g/dL (12.0-15.0); Lymphocyte # 1.36 X10^3/ul (0.83-4.51); Lymphocyte % 17.7 % (19-41); Mean Corp Hgb Conc 32.2 g/dL (32-36); Mean Corpuscular Hgb 28.5 pg (27.0-32.0); Mean Corpuscular Volume 88.6 fL (81-99); Mean Platelet Vol. 11.8 fl (6.2-12.0); Monocyte# 1.21 X10^3/uL; Monocyte% 15.8 % (0-10); NRBC Flagged by Analyzer 0 % (0-5); Neutrophil # 5.03 X10^3/uL (2.7-7.7); Neutrophil % 65.6 % (47-70); Platelet Count 189 K/mm3 (150-450); RBC Distribution Width CV 13.7 % (11.6-14.6); RBC Distribution Width SD 44.7 fl (35.1-43.9); Red Blood Count 3.68 M/mm3 (4.2-5.4); White Blood Count 7.7 K/mm3 (4.4-11.0)
[2022-05-13 06:37] LABS: Anion Gap 5 (5-15); BUN 5 mg/dL (7-18); BUN/Creat Ratio 7.1 RATIO (10-20); Calcium,Total 8.5 mg/dL (8.5-10.1); Chloride 112 mmol/L (98-107); EST Glomerular Filtration Rate 105 mL/min (>60); Est Glom Filt Rate - Afr Amer 127 mL/min (>60); Estimated Creatinine Clearance 129.39 ml/min; Glucose 106 mg/dL (74-106); Phosphorus 2.5 mg/dL (2.5-4.9); Potassium 4.2 mmol/L (3.5-5.1); Sodium Level 139 mmol/L (136-145)
[2022-05-13 07:26] VITALS: O2SAT 97
--- NOTE | 2022-05-13 07:57 | PCM.PN.HOSP ---
Subjective Subjective Patient urine cultures came back positive for E. coli. Plan is for patient to be assessed for possible discharge Objective Data Objective Data Vital Signs: Vital Signs Temp Pulse Resp BP Pulse Ox O2 Del Method 98.5 F 64 16 98/52 L 97 Room Air 05/13/22 05:00 05/13/22 05:00 05/13/22 05:00 05/13/22 05:00 05/13/22 07:26 05/13/22 07:26 Oxygen Delivery Method Room Air Weight: 86.7 kg Body Mass Index (BMI) 27.4 Intake & Output: Intake and Output for Last 24 Hours 05/11/22 05/12/22 05/13/22 23:59 23:59 23:59 Intake Total 1000 / 1000 3440 / 3440 Output Total 200 / 200 Balance 1000 / 1000 3240 / 3240 Lab / Micro Data Result Diagrams: 05/13/22 05:17 05/13/22 05:17 Labs: Laboratory Results - last 24 hr 05/11/22 19:27: Diff Path Review Reviewed 05/13/22 05:17: WBC 7.7, RBC 3.68 L, Hgb 10.5 L, Hct 32.6 L, MCV 88.6, MCH 28.5, MCHC 32.2, RDW Std Deviation 44.7 H, RDW Coeff of Radha 13.7, Plt Count 189, MPV 11.8, Immature Gran % (Auto) 0.500, Neut % (Auto) 65.6, Lymph % (Auto) 17.7 L, [place] % (Auto) 15.8 H, Eos % (Auto) 0.3, Baso % (Auto) 0.1, Absolute Neuts (auto) 5.0, Absolute Lymphs (auto) 1.36, Nucleated RBC % 0 05/13/22 05:17: Sodium 139, Potassium 4.2, Chloride 112 H, Carbon Dioxide 22.0, Anion Gap 5, BUN 5 L, Creatinine 0.70, Estim Creat Clear Calc 129.39, Est GFR (MDRD) Af Amer 127, Est GFR (MDRD) Non-Af 105, BUN/Creatinine Ratio 7.1 L, Glucose 106, Calcium 8.5, Phosphorus 2.5, Magnesium 2.0 Micro: Microbiology 05/11/22 19:27 Urine, Clean Catch Urine Culture - Preliminary Gram negative izzy Physical Exam Narrative GENERAL: cooperative HEENT: Atraumatic; normocephalic EYES; Anicteric, Normal Conjunctiva NECK; supple, normal thyroid, RESPIRATORY: Diminished to auscultation CARDIOVASCULAR: Regular S1 S2, GI: soft, normoactive bowel sounds, : No Renal angle tenderness; EXTREMITIES: No edema, no clubbing, MUSCULOSKELETAL: no muscle wasting NEURO: Awake; no lateralizing signs. SKIN: No Rash PSYCH; Flat affect Assessment & Plan Assessment/Plan (1) Pyelonephritis: (2) Hypokalemia: PLAN: Plan Patient is a 26-year-old lady who presented with right lower quadrant abdominal pain with associated nausea and vomiting of 3 days duration. An assessment of acute pyelonephritis made admitted to regular nursing floor for further management 1. Acute pyelonephritis ? Patient admitted to regular nursing floor started on Rocephin cultures times with plans to adjust antibiotic therapy based on culture result -05/13/2022; Patient urine cultures came back positive for E. coli. Plan is for patient to be assessed for possible discharge 2. Hypokalemia ? Corrected per protocol repeat labs ordered 3. Depression ? Patient is on duloxetine 4. ADHD ? Patient is on Adderall 5. DVT prophylaxis ? Lovenox Charges/Coding Visit Charges Inpatient E&M: 02027 Subs Hosp L2
[2022-05-13 09:05] VITALS: BP 102/66; PULSE 71; RESP 12; TEMP 37.5; O2SAT 98
[2022-05-13] MEDS: 0.9% Saline Lock 10 ML Syringe IV (09:13)
--- NOTE | 2022-05-13 09:14 | DS.PCM_ITS ---
Providers Date of Admission: 05/11/22 Date of Discharge: 05/13/22 Primary Care Physician: MARCELL Pruitt Reason For Visit: ACTUE PYELONEPHRITIS Diagnosis Discharge Diagnosis (1) Pyelonephritis: Status: Acute Code(s): N12 - Tubulo-interstitial nephritis, not specified as acute or chronic (2) Hypokalemia: Status: Acute Code(s): E87.6 - Hypokalemia Plan Patient is a 26-year-old lady who presented with right lower quadrant abdominal pain with associated nausea and vomiting of 3 days duration. An assessment of acute pyelonephritis made admitted to regular nursing floor for further management 1. Acute pyelonephritis ? Patient admitted to regular nursing floor started on Rocephin cultures times with plans to adjust antibiotic therapy based on culture result -05/13/2022; Patient urine cultures came back positive for E. coli. Plan is for patient to be assessed for possible discharge 2. Hypokalemia ? Corrected per protocol repeat labs ordered 3. Depression ? Patient is on duloxetine 4. ADHD ? Patient is on Adderall 5. DVT prophylaxis ? Lovenox Medications at Discharge Home Medications tobramycin 0.3 % eye drops 1 drp EACH EYE 4X/DAY PRN Eye Irritation 03/22/21 dextroamphetamine-amphetamine 10 mg tablet (Adderall) 10 mg PO DAILY ADD 05/11/22 duloxetine 30 mg capsule,delayed release 30 mg PO QHS depression 05/11/22 etodolac 200 mg capsule 200 mg PO QHS anti inflammatory 05/11/22 pregabalin 100 mg capsule 100 mg PO QHS fibromyalgia 05/11/22 tizanidine 4 mg capsule 4 mg PO Q8H PRN muscle spasms 05/11/22 trazodone 50 mg tablet 50 mg PO QHS sleep 05/11/22 cefdinir 300 mg capsule 300 mg PO BID #20 caps 05/13/22 Hospital Course Summary of Care Provided Minutes Spent on Discharge: 35 Physical Exam Narrative GENERAL: cooperative HEENT: Atraumatic; normocephalic EYES; Anicteric, Normal Conjunctiva NECK; supple, normal thyroid, RESPIRATORY: Diminished to auscultation CARDIOVASCULAR: Regular S1 S2, GI: soft, normoactive bowel sounds, : No Renal angle tenderness; EXTREMITIES: No edema, no clubbing, MUSCULOSKELETAL: no muscle wasting NEURO: Awake; no lateralizing signs. SKIN: No Rash PSYCH; Flat affect Weight / BMI Weight Weight: 86.7 kg Body Mass Index (BMI) 27.4 ABG / Lab / Microbiology Data Result Diagrams: 05/13/22 05:17 05/13/22 05:17 Laboratory: Laboratory Results - last 24 hr 05/11/22 19:27: Diff Path Review Reviewed 05/13/22 05:17: WBC 7.7, RBC 3.68 L, Hgb 10.5 L, Hct 32.6 L, MCV 88.6, MCH 28.5, MCHC 32.2, RDW Std Deviation 44.7 H, RDW Coeff of Radha 13.7, Plt Count 189, MPV 11.8, Immature Gran % (Auto) 0.500, Neut % (Auto) 65.6, Lymph % (Auto) 17.7 L, [place] % (Auto) 15.8 H, Eos % (Auto) 0.3, Baso % (Auto) 0.1, Absolute Neuts (auto) 5.0, Absolute Lymphs (auto) 1.36, Nucleated RBC % 0 05/13/22 05:17: Sodium 139, Potassium 4.2, Chloride 112 H, Carbon Dioxide 22.0, Anion Gap 5, BUN 5 L, Creatinine 0.70, Estim Creat Clear Calc 129.39, Est GFR (MDRD) Af Amer 127, Est GFR (MDRD) Non-Af 105, BUN/Creatinine Ratio 7.1 L, Glucose 106, Calcium 8.5, Phosphorus 2.5, Magnesium 2.0 Microbiology: Microbiology 05/11/22 19:27 Urine, Clean Catch Urine Culture - Final Escherichia coli D/C Instructions Discharge Diet: No restrictions Discharge Activity: Return to Normal Activity Call your doctor if you observe: Fever of 101 or Higher, Shortness of breath, Fainting spells and Chest pain Meaningful Use Info Meaningful Use Diagnoses (Choose all that apply): None applicable Discharge Plan Admission Admit Date/Time: 05/11/22 21:37 Attending Provider: Stiven Shepard Primary Care Provider: Sandie Bui NP Consulting Providers: Stewart Joiner Discharge Orders/Prescriptions Prescriptions: New cefdinir 300 mg capsule 300 mg PO BID Qty: 20 0RF Continued tobramycin 0.3 % drops 1 drp EACH EYE 4X/DAY PRN (Reason: Eye Irritation) Label Comments: INSTILL 1 DROP INTO EACH EYE 4 TIMES DAILY FOR 7 DAYS etodolac 200 mg Capsule 200 mg PO QHS trazodone 50 mg Tablet 50 mg PO QHS dextroamphetamine-amphetamine [Adderall] 10 mg Tablet 10 mg PO DAILY duloxetine 30 mg Capsule,Delayed Release(Dr/Ec) 30 mg PO QHS tizanidine 4 mg Capsule 4 mg PO Q8H PRN (Reason: muscle spasms) pregabalin 100 mg capsule 100 mg PO QHS Referrals / Follow Up: Sandie Bui [employer]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
[2022-05-13] MEDS: tiZANidine HCl 2 MG Tablet 4 MG PO (09:28)
[2022-05-13] MEDS: FLU VACC QS2022-23(6MOS UP)/PF 60 MCG/0.5 ML SYRINGE IM (09:30)
--- NOTE | 2022-05-13 10:26 | PHA.DC.MC ---
Pharmacy Service has performed discharge medication reconciliation and counseling for this patient. 1. CEFDINIR 300MG PO BID X 10 DAYS The patient's discharge medication list was reviewed for discrepancies and discrepancies were resolved. Home Medications tobramycin 0.3 % eye drops 1 drp EACH EYE 4X/DAY PRN Eye Irritation 03/22/21 dextroamphetamine-amphetamine 10 mg tablet (Adderall) 10 mg PO DAILY ADD 05/11/22 duloxetine 30 mg capsule,delayed release 30 mg PO QHS depression 05/11/22 etodolac 200 mg capsule 200 mg PO QHS anti inflammatory 05/11/22 pregabalin 100 mg capsule 100 mg PO QHS fibromyalgia 05/11/22 tizanidine 4 mg capsule 4 mg PO Q8H PRN muscle spasms 05/11/22 trazodone 50 mg tablet 50 mg PO QHS sleep 05/11/22 cefdinir 300 mg capsule 300 mg PO BID #20 caps 05/13/22 The patient was counseled on the following discharge medications and changes in medications for homegoing were reviewed. The Reason for Use, instructions for use, and potential side effects were reviewed for all new medications. The patient's questions regarding all of their medications were answered. The patient was able to verbally demonstrate an understanding of their discharge medications.
[2022-05-13 11:44] VITALS: BP 106/70; PULSE 78; RESP 14; TEMP 36.7; O2SAT 98
== END 2022-05-13 11:32 | disposition home or self-care (01) | DRG 463 ==
LOC: ED 19:19 → MS3 22:19
PROVIDERS: Admitting Provider Hospitalist; Emergency Provider Emergency Medicine; PCP Nurse Practitioner Family; Visit Provider Internal Medicine
DX: N10 Acute pyelonephritis (principal); B96.20 Unspecified Escherichia coli [E. coli] as the cause of diseases classified elsewhere; D72.810 Lymphocytopenia; E87.6 Hypokalemia; F17.290 Nicotine dependence, other tobacco product, uncomplicated; M79.7 Fibromyalgia; G43.709 Chronic migraine without aura, not intractable, without status migrainosus; K58.9 Irritable bowel syndrome, unspecified; F32.A Depression, unspecified; F90.9 Attention-deficit hyperactivity disorder, unspecified type; Z79.899 Other long term (current) drug therapy; Z23 Encounter for immunization
CPT/HCPCS: 90686; 36415; 74176; 80048; 80053; 81001; 83690; 83735; 84100; 84703; 85025; 87077; 87086; 87088; 87186; 96365; 96366; 96367; 96372; 96375; 96376; 99284; 99406; J7030; J7050; A4216; J2405; J3490